=== PATIENT | male | born 1930 | race Caucasian/White ===

== ENCOUNTER 2016-08-20 00:04 | Observation (INO) | payer MEDICARE ==
[2016-08-20] VITALS (25 sets, daily range): BP systolic 99–182; BP diastolic 64–86; PULSE 54–74; RESP 18–20; TEMP 97.8–98.2; O2SAT 92–100
[~2016-08-20] VITALS: Ht 175.3 cm; Wt 90.1 kg
[~2016-08-20 00:04] MED LIST: BENA40TA PO; DOXA4 PO; LATA0.00 EACH EYE; MULTCAP20 PO; SIMV20TA PO; TEMA15 PO; VITA200017 PO
[2016-08-20] MEDS ORDERED: SODIUM CHLORIDE 0.9% FLUSH 5 ML FLUSH IVF PRN ×3 (00:30→03:30)
[2016-08-20] MEDS ORDERED: ONDANSETRON HCL 4 MG/2 ML VIAL IV PUSH ONE (00:30)
[2016-08-20] MEDS ORDERED: ASPIRIN 81 MG CHEW TAB PO ONE (00:30)
[2016-08-20] MEDS: SODIUM CHLOR 0.9% 1000 ML INJ 1,000 ML IV SCH ×3 (00:33→18:18)
--- NOTE | 2016-08-20 00:41 | PD ---
HPI Chief Complaint: Chest Pain Time Seen by Provider: 00:22 Travel History International Travel<30 days: No Contact w/Intl Traveler<30days: No Traveled to known affect area: No History of Present Illness HPI 86-year-old male presents to the emergency department by private transportation the care of his family for complaint of 30 minutes of retrosternal and epigastric abdominal pain. Patient did eat bad food prior to onset of symptoms. Patient has associated nausea without vomiting. Patient has had some pallor. Patient rates pain 9/10 intensity. Patient states pain is nonradiating. Patient is not had no associated shortness of breath. Patient does have history of hypertension dyslipidemia. Patient denies prior history of heart disease. Patient denies any arm or leg numbness tingling or weakness. No report of headache or change in mentation. Patient also has had previous CVA. PFSH Past Medical History Arthritis: Yes Asthma: No Autoimmune Disease: No Blood Disorders: No Anxiety: No Depression: No Heart Rhythm Problems: No Cancer: No Cardiovascular Problems: Yes (murmur, bradycardia) High Cholesterol: No Chemotherapy: No Chest Pain: No Congestive Heart Failure: No Cerebrovascular Accident: No Diabetes: No Diminished Hearing: No Endocrine: No GERD: No Glaucoma: No Genitourinary: No Headaches: No Hepatitis: No Hiatal Hernia: No Hypertension: Yes Immune Disorder: No Kidney Stones: No Musculoskeletal: Yes Neurologic: No Psychiatric: No Reproductive: Yes (ED (erectile dysfunction)) Respiratory: No Migraines: No Myocardial Infarction: No Radiation Therapy: No Renal Failure: No Seizures: No Sickle Cell Disease: No Sleep Apnea: No Thyroid Disease: No Ulcer: No Past Surgical History Abdominal Surgery: No AICD: No Appendectomy: No Arteriovenous Shunt: No Cardiac Surgery: No Cholecystectomy: No Ear Surgery: No Endocrine Surgery: No Eye Surgery: No Genitourinary Surgery: No Gynecologic Surgery: No Insulin Pump: No Joint Replacement: No Oral Surgery: No Pacemaker: No Thoracic Surgery: No Other Surgery: Yes Social History Alcohol Use: No Tobacco Use: No Substance Use: No Allergies-Medications (Allergen,Severity, Reaction): Coded Allergies: Codeine (Verified Allergy, Mild, 08/20/16) Reported Meds & Prescriptions Reported Meds & Active Scripts Active Reported Benazepril Hcl (Benazepril HCl) 40 Mg Tab 40 Mg PO DAILY Cardura 4 Mg Tab4 Mg 4 Mg Tab 4 Mg PO HS Restoril 15 mg (Temazepam) 15 Mg Cap 15 Mg PO HSPRN PRN for insomnia Vitamin D3 Super Strength (Cholecalciferol) 2,000 Unit Cap 2,000 Unit PO DAILY Latanoprost 0.005 % Lalitha 1 Drop EACH EYE HS Icaps Lutein & [place]-3 (Multivitamins/Minerals) 1 Cap Cap 2 Cap PO DAILY Simvastatin 20 Mg Tab 20 Mg PO DAILY Review of Systems Except as stated in HPI: all other systems reviewed are Neg General / Constitutional: No: Fever, Chills HENT: No: Congestion Cardiovascular: Positive: Chest Pain or Discomfort Respiratory: No: Cough, Shortness of Breath Gastrointestinal: Positive: Nausea, Abdominal Pain, No: Vomiting Genitourinary: No: Decreased Urinary Output, Flank Pain Musculoskeletal: No: Myalgias, Arthralgias, Pain Skin: No Rash Neurologic: No: Weakness Psychiatric: No: Anxiety Hematologic/Lymphatic: No: Lymph Node Enlargement Physical Exam Narrative GENERAL: Well-developed well-nourished male in obvious discomfort no respiratory distress mild pallor. SKIN: Warm and dry. HEAD: Normocephalic. EYES: No scleral icterus. No injection or drainage. NECK: Supple, trachea midline. No JVD or lymphadenopathy. CARDIOVASCULAR: Regular rate and rhythm without murmurs, gallops, or rubs. RESPIRATORY: Breath sounds equal bilaterally. No accessory muscle use. GASTROINTESTINAL: Abdomen soft, marked tenderness to direct palpation over the epigastrium with voluntary guarding no rebound, no right upper quadrant tenderness to palpation no clinical Rivero sign. No right lower quadrant tenderness; no palpable pulsatile mass. Nondistended. MUSCULOSKELETAL: No cyanosis, or edema. Bilateral radial and dorsalis pedis pulses 2+ to palpation. BACK: Nontender without obvious deformity. No CVA tenderness. Data Data Last Documented VS Vital Signs Date Time Temp Pulse Resp B/P Pulse Ox O2 Delivery O2 Flow Rate FiO2 08/20/16 03:18 71 18 125/79 100 Nasal Cannula 2 Orders Electrocardiogram (08/20/16 00:22) Basic Metabolic Panel (Bmp) (08/20/16 00:22) Ckmb (Isoenzyme) Profile (08/20/16 00:22) Complete Blood Count With Diff (08/20/16 00:22) Magnesium (Mg) (08/20/16 00:22) Prothrombin Time / Inr (Pt) (08/20/16 00:22) Act Partial Throm Time (Ptt) (08/20/16 00:22) Troponin I (08/20/16 00:22) Chest, Single Ap (08/20/16 00:22) Ecg Monitoring (08/20/16 00:22) Bilateral Bp Monitoring (08/20/16 00:22) Iv Access Insert/Monitor (08/20/16 00:22) Oximetry (08/20/16 00:22) Oxygen Administration (08/20/16 00:22) Aspirin Chew (Aspirin Chew) (08/20/16 00:30) Sodium Chloride 0.9% Flush (Ns Flush) (08/20/16 00:30) Sodium Chlor 0.9% 1000 Ml Inj (Ns 1000 M (08/20/16 00:30) Ondansetron Inj (Zofran Inj) (08/20/16 00:30) Ct Abd/Pel W/O Iv Contrast (08/20/16 ) Sodium Chlorid 0.9% 500 Ml Inj (Ns 500 M (08/20/16 01:00) Nitroglycerin Sl (Nitrostat Sl) (08/20/16 01:00) CKMB (08/20/16 00:30) CKMB% (08/20/16 00:30) Hepatic Functional Panel (08/20/16 00:30) Pantoprazole Inj (Protonix Inj) (08/20/16 01:30) Morphine Inj (Morphine Inj) (08/20/16 01:30) Us Abdomen Gallbladder (08/20/16 ) Lipase (08/20/16 00:30) Sodium Chloride 0.9% Flush (Ns Flush) (08/20/16 02:00) Nitroglycerin Sl (Nitrostat Sl) (08/20/16 02:00) Nitroglycerin 2% Oint (Nitroglycerin 2% (08/20/16 02:45) Admit Order (Ed Use Only) (08/20/16 ) ^ Saline Lock (08/20/16 03:29) Resp Oxygen Ron C Titrat 1-4 L (08/20/16 ) ^ Notify Dr: Other (08/20/16 03:29) Sodium Chloride 0.9% Flush (Ns Flush) (08/20/16 09:00) Sodium Chloride 0.9% Flush (Ns Flush) (08/20/16 03:30) Labs Laboratory Tests Test 08/20/16 00:30 White Blood Count 9.2 TH/MM3 Red Blood Count 4.73 MIL/MM3 Hemoglobin 14.9 GM/DL Hematocrit 44.2 % Mean Corpuscular Volume 93.5 FL Mean Corpuscular Hemoglobin 31.5 PG Mean Corpuscular Hemoglobin 33.7 % Concent Red Cell Distribution Width 13.2 % Platelet Count 237 TH/MM3 Mean Platelet Volume 8.1 FL Neutrophils (%) (Auto) 56.3 % Lymphocytes (%) (Auto) 31.1 % Monocytes (%) (Auto) 8.5 % Eosinophils (%) (Auto) 3.5 % Basophils (%) (Auto) 0.6 % Neutrophils # (Auto) 5.1 TH/MM3 Lymphocytes # (Auto) 2.9 TH/MM3 Monocytes # (Auto) 0.8 TH/MM3 Eosinophils # (Auto) 0.3 TH/MM3 Basophils # (Auto) 0.1 TH/MM3 CBC Comment DIFF FINAL Differential Comment Prothrombin Time 11.4 SEC Prothromb Time International 1.0 RATIO Ratio Activated Partial 28.7 SEC Thromboplast Time Sodium Level 143 MEQ/L Potassium Level 3.9 MEQ/L Chloride Level 107 MEQ/L Carbon Dioxide Level 26.6 MEQ/L Anion Gap 9 MEQ/L Blood Urea Nitrogen 24 MG/DL Creatinine 1.20 MG/DL Estimat Glomerular Filtration 58 ML/MIN Rate Random Glucose 113 MG/DL Calcium Level 8.8 MG/DL Magnesium Level 2.3 MG/DL Total Bilirubin 1.0 MG/DL Direct Bilirubin 0.1 MG/DL Indirect Bilirubin 0.9 MG/DL Aspartate Amino Transf 22 U/L (AST/SGOT) Alanine Aminotransferase 25 U/L (ALT/SGPT) Alkaline Phosphatase 76 U/L Total Creatine Kinase 128 U/L Creatine Kinase MB 2.7 NG/ML Troponin I 0.03 NG/ML Total Protein 7.1 GM/DL Albumin 3.3 GM/DL Lipase 172 U/L [facility] Medical Decision Making Medical Screen Exam Complete: Yes Emergency Medical Condition: Yes Medical Record Reviewed: Yes Interpretation(s) EKG sinus bradycardia rate 56 left anterior fascicular block QS in lead 3 and aVF with baseline artifact chest pain 9/10 in intensity no acute ST elevation injury pattern Repeat EKG inverted T-wave without ST segment depression in lead [address] elevation or injury pattern change noted no ectopy or ST elevation; chest pain 9/10 CBC with automated differential: Values in normal range Metabolic panel: Values grossly within normal limits except for mild elevation of BUN of 24 CK total: 127, not elevated; troponin I: 0.03 within normal range Coagulation studies within normal limits cxr: nad CT abd/pel w/o contrast" per reading radiologist no aneurysm no free fluid no free air, lateral wall mildly thickened no pericholecystic fluid no stones no ductal dilatation Differential Diagnosis Chest pain, ACS, myocardial infarction, abdominal aortic aneurysm, dissection, cholecystitis, esophageal spasm Narrative Course Patient placed on quality assurance monitor IV access obtained bilaterally antecubital fossa's with 18-gauge IV access patient placed on 3 L/m nasal cannula oxygen stat CT abdomen and pelvis noncontrast ordered along with normal saline 1 25 cc per hour stat type and screen; Zofran 4 mg IV; patient ordered 1 sublingual nitroglycerin Patient returns from CT pain is 8-9/10 in intensity several nitroglycerin times one administered and pain has decreased to 5/10 intensity but patient did develop hypotension systolic pressure 99/55 patient given IV fluid bolus Chest x-ray reveals no acute abnormality CT noncontrast reveals no aneurysm evidence of Harpreet filter and bibasilar atelectasis; also gallbladder wall mildly thickened without evidence of pericholecystic fluid ductal dilatation or stones @1:28 AM first set of cardiac enzymes within normal range however troponin I is 0.03; ultrasound of the gallbladder ordered along with Protonix 40 mg IV morphine 2 mg IV and normal saline bolus 1 L @ 1:49 BP: 140/88 CP again is 9/10 no referred pain to the neck jaw back mid scapular abdomen areas; no nausea; no vomiting; no shortness of breath; will attempt sublingual nitroglycerin 0.4 mg again to obtain decreased intensity of chest pain and hopefully resolution of chest pain. Abdomen is no longer tender to palpation diffusely or in the epigastric or right upper quadrant distribution. @2:16 AM after a total of 3 sublingual nitroglycerin blood pressure is well- controlled following IV fluid bolus; chest pain is 3/10 in intensity; epigastric right upper quadrant pain is 5-6/10 with palpation and 3/10 without palpation. registered dietetic technician is at bedside. Physician Communication Physician Communication case discussed with Dr Mckay ---will admit as OBS Diagnosis Primary Impression: Chest pain Qualified Code: R07.2 - Precordial pain Additional Impression: Cholelithiasis Admitting Information Admitting Physician Requests: Aylin Sun MD Aug 20, 2016 00:40
[2016-08-20 00:47] LABS: AUTOMATED NEUTROPHIL # 5.1 TH/MM3 (1.8-7.7); BASOPHIL # 0.1 TH/MM3 (0-0.2); BASOPHIL % 0.6 % (0.0-2.0); EOSINOPHIL # 0.3 TH/MM3 (0-0.4); EOSINOPHIL % 3.5 % (0.0-4.0); HEMATOCRIT 44.2 % (39.0-51.0); HEMO FLAGS DIFF FINAL; LYMPH % 31.1 % (9.0-44.0); LYMPHOCYTE # 2.9 TH/MM3 (1.0-4.8); MEAN CELL VOLUME 93.5 FL (80.0-100.0); MEAN CORPUSCULAR HEMOGLOBIN 31.5 PG (27.0-34.0); MEAN CORPUSCULAR HGB CONC 33.7 % (32.0-36.0); MONO % 8.5 % (0.0-8.0); NEUT % 56.3 % (16.0-70.0); PLATELET COUNT 237 TH/MM3 (150-450); RED BLOOD COUNT 4.73 MIL/MM3 (4.50-5.90); RED CELL DISTRIBUTION WIDTH 13.2 % (11.6-17.2); WHITE BLOOD COUNT 9.2 TH/MM3 (4.0-11.0)
[2016-08-20 00:53] LABS: CHLORIDE 107 MEQ/L (98-107); POTASSIUM 3.9 MEQ/L (3.5-5.1); SODIUM (NA) 143 MEQ/L (136-145)
[2016-08-20 00:57] LABS: ANION GAP 9 MEQ/L (5-15); BICARBONATE 26.6 MEQ/L (21.0-32.0); BLOOD UREA NITROGEN 24 MG/DL (7-18); MAGNESIUM 2.3 MG/DL (1.5-2.5)
[2016-08-20 00:58] LABS: APTT (PATIENT) 28.7 SEC (24.3-30.1); PROTHROMBIN TIME - PATIENT 11.4 SEC (9.8-11.6)
[2016-08-20 01:00] LABS: GLOMERULAR FILTRATION RATE 58 ML/MIN (>89)
[2016-08-20] MEDS ORDERED: SODIUM CHLORID 0.9% 500 ML INJ 500 ML IV ONE (01:00)
[2016-08-20] MEDS ORDERED: NITROGLYCERIN 0.4 MG SL 25 TABS/BTL SL ONE (01:00)
--- NOTE | 2016-08-20 01:01 | RADHPO ---
EXAM DATE/TIME: 08/20/2016 00:40 [facility] COMPARISON: No previous studies available for comparison. INDICATIONS : Chest pain. Evaluate abdominal aneurysm. ORAL CONTRAST: No oral contrast ingested. RADIATION DOSE: 22.49 CTDIvol (mGy) MEDICAL HISTORY : Hypertension. SURGICAL HISTORY : None. ENCOUNTER: Initial ACUITY: 1 day PAIN SCALE: 8/10 LOCATION: chest TECHNIQUE: Volumetric scanning of the abdomen and pelvis was performed. Using automated exposure control and ad justment of the mA and/or kV according to patient size, radiation dose was kept as low as reasonably achievable to obtain optimal diagnostic quality images. FINDINGS: LOWER LUNGS: Mild atelectasis both lung bases LIVER: Homogeneous density without lesion. There is no dilation of the biliary tree. No calcified gallston es. The gallbladder wall is mildly prominent without evidence of pericholecystic fluid or inflammatio n. SPLEEN: Normal size without lesion. PANCREAS: Within normal limits. KIDNEYS: Normal in size and shape. There is no mass, stone, or hydronephrosis. ADRENAL GLANDS: Within normal limits. VASCULAR: There is no aortic aneurysm. BOWEL/MESENTERY: The stomach, small bowel, and colon demonstrate no acute abnormality. There is no free intraperitone al air or fluid. ABDOMINAL WALL: Within normal limits. RETROPERITONEUM: There is no lymphadenopathy. IVC filter in place BLADDER: No wall thickening or mass. REPRODUCTIVE: Within normal limits. INGUINAL: There is no lymphadenopathy or hernia. MUSCULOSKELETAL: Marked arthritic change lower lumbar spine. CONCLUSION: Gallbladder wall is thickened without evidence of acute cholecystitis. IVC filter in place. Degenerat latoya arthritis lower lumbar spine. No free fluid or mass. Juwan Barraza MD on August 20, 2016 at 0:56 Board Certified Radiologist. This report was verified electronically.
[2016-08-20 01:03] LABS: CREATINE KINASE 128 U/L (39-308)
--- NOTE | 2016-08-20 01:09 | RADHPO ---
EXAM DATE/TIME: 08/20/2016 00:56 [facility] COMPARISON: CHEST SINGLE AP, December 18, 2012, 15:17. INDICATIONS : Chest pain. MEDICAL HISTORY : None. SURGICAL HISTORY : None. ENCOUNTER: Initial ACUITY: 1 day PAIN SCORE: 5/10 LOCATION: Left chest FINDINGS: A single view of the chest demonstrates the lungs to be symmetrically aerated without evidence of mas s, infiltrate or effusion. The cardiomediastinal contours are unremarkable. Osseous structures are intact. CONCLUSION: Normal examination. Juwan Barraza MD on August 20, 2016 at 1:07 Board Certified Radiologist. This report was verified electronically.
[2016-08-20 01:15] LABS: CKMB 2.7 NG/ML (0.5-3.6)
[2016-08-20 01:19] LABS: ALT (GPT) 25 U/L (12-78); AST (GOT) 22 U/L (15-37)
[2016-08-20 01:20] LABS: INDIRECT BILIRUBIN 0.9 MG/DL (0.0-0.8)
[2016-08-20 01:21] LABS: ALKALINE PHOSPHATASE 76 U/L (45-117)
[2016-08-20] MEDS ORDERED: PANTOPRAZOLE SODIUM 40 MG VIAL IV PUSH ONE (01:30)
[2016-08-20] MEDS ORDERED: MORPHINE SULFATE 4 MG/ML INJ IV PUSH ONE (01:30)
[2016-08-20] MEDS: NITROGLYCERIN 0.4 MG SL 25 TABS/BTL SL SCH ×2 (01:52→01:59)
[2016-08-20] MEDS ORDERED: NITROGLYCERIN 2% OINT 1 GM PACKET TOPICAL ONE (02:45)
--- NOTE | 2016-08-20 02:59 | RADHPO ---
EXAM DATE/TIME: 08/20/2016 02:01 [facility] COMPARISON: CT ABDOMEN & PELVIS W/O CONTRAST, August 20, 2016, 0:40. INDICATIONS : Right upper quadrant pain. MEDICAL HISTORY : Hypertension. Heart murmer. Erectile disfunction. SURGICAL HISTORY : Rotator cuff repair. Back surgery. Left knee surgery. Cervical plate fusion. ENCOUNTER: Initial ACUITY: 1 day PAIN SCORE: 7/10 LOCATION: Right upper quadrant MEASUREMENTS: LIVER: 15.2 cm length 5 mm RIGHT KIDNEY: 9.9 x 4.4 x 4.9 cm FINDINGS: LIVER: Normal echotexture without focal lesion or ductal dilatation. COMMON DUCT: No intraluminal mass or stone visualized. GALLBLADDER: Echogenic debris within the gallbladder suspicious for noncalcified gallstones. The patient was tend er over the gallbladder. PANCREAS: The visualized portions are within normal limits. RIGHT KIDNEY: No evidence of hydronephrosis, stone, or mass. CONCLUSION: Study suspicious for echogenic large gallstone in the gallbladder and the patient was tender when the gallbladder was being scanned. No free fluid is seen. The right kidney is unremarkable Juwan Barraza MD on August 20, 2016 at 2:55 Board Certified Radiologist. This report was verified electronically.
[2016-08-20] MEDS ORDERED: TEMAZEPAM 15 MG CAP PO PRN (03:45)
[2016-08-20] MEDS ORDERED: NITROGLYCERIN 0.4 MG SL 25 TABS/BTL SL PRN (03:45)
[2016-08-20] MEDS: NITROGLYCERIN 2% OINT 1 GM PACKET TOPICAL SCH ×3 (05:39→22:00)
[2016-08-20] MEDS: PRAVASTATIN SOD 40 MG TAB PO SCH (08:24)
[2016-08-20] MEDS: LISINOPRIL 20 MG TAB PO SCH (08:25)
[2016-08-20] MEDS: SODIUM CHLORIDE 0.9% FLUSH 5 ML FLUSH IVF SCH ×2 (08:27→21:00)
[2016-08-20] MEDS ORDERED: ACETAMINOPHEN 325 MG TAB PO PRN (13:00)
--- NOTE | 2016-08-20 13:27 | EKG ---
Date Performed: 08/20/2016 Time Performed: 04:12:14 PTAGE: 86 years EKG: Sinus rhythm with PAC(s). Possible left anterior fascicular block Borderline ECG Compared to PREVIOUS TRACING , there has been a slight improvement in the inferior T-wave changes but there is new ST segment depression involving the high lateral wall. The changes are nonspecific but clinical correlation will be useful. PREVIOUS TRACIN08/20/2016 04.11 DOCTOR: Sarah Blue Interpretating Date/Time 08/20/2016 13:25:55
--- NOTE | 2016-08-20 13:32 | EKG ---
Date Performed: 08/20/2016 Time Performed: 00:17:06 PTAGE: 86 years EKG: Sinus bradycardia. Possible left anterior fascicular block Inferior T wave changes are nons pecific Since previous tracing, no significant change noted Borderline ECG PREVIOUS TRACING : 08/20/2016 00.06 DOCTOR: Sarah Blue Interpretating Date/Time 08/20/2016 13:29:32
[2016-08-20] MEDS ORDERED: IOHEXOL 350 MG/ML 10 ML VIAL (for RAD DIAG) IV ONE (14:40)
--- NOTE | 2016-08-20 15:20 | RADHPO ---
EXAM DATE/TIME: 08/20/2016 14:20 [facility] COMPARISON: CT ABDOMEN & PELVIS W/O CONTRAST, August 20, 2016, 0:40. INDICATIONS : Retrosternal and epigastric pain. IV CONTRAST: 85 cc Omnipaque 350 (iohexol) IV RADIATION DOSE: 21.20 CTDIvol (mGy) MEDICAL HISTORY : Hypertension. SURGICAL HISTORY : Orthopedic surgery. ENCOUNTER: Initial ACUITY: 1 day PAIN SCALE: 3/10 LOCATION: chest TECHNIQUE: Volumetric scanning was performed using a multi-row detector CT scanner. The data was post processed with a variety of visualization algorithms including full volume maximum intensity projection, multi -planar sliding thin slab reformation, curved planar reformation, and surface rendering techniques. Using automated exposure control and adjustment of the mA and/or kV according to patient size, radiat ion dose was kept as low as reasonably achievable to obtain optimal diagnostic quality images. FINDINGS: LUNGS: Patchy bibasilar consolidation noted. There is a tiny left pleural effusion. No pneumothorax. MEDIASTINUM: No abnormally enlarged lymph nodes by CT criteria. No axillary or hilar abnormalities are identified. ABDOMEN: Solid organs appear within normal limits. Gallbladder wall thickening again noted. PELVIS: There is sigmoid colon diverticulosis without acute diverticulitis. 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 THORACIC AORTA: Thoracic aorta is normal caliber. No dissection. There is mild mural atherosclerotic plaque. ABDOMINAL AORTA: Abdominal aorta is normal caliber. Vessel has mild atherosclerosis and tortuosity, extending into the iliac arteries. No dissection. PELVIC VESSELS: Tortuous iliac arteries with mild atherosclerosis. CONCLUSION: 1. No dissection, aneurysm or other acute abnormality of the aorta or branch vessels. 2. Gallbladder wall thickening again noted, not significantly changed from the study done earlier tojosé ay. 3. Sigmoid colon diverticulosis without acute diverticulitis. 4. Worsening patchy airspace consolidation of both lung bases. Gary Hancock MD on August 20, 2016 at 15:13 Board Certified Radiologist. This report was verified electronically.
--- NOTE | 2016-08-20 15:38 | MH ---
cc: REUBEN COSTELLO M.D. DATE OF ADMISSION: 08/20/2016 ADMITTING DIAGNOSIS: Chest pain and right upper quadrant abdominal pain. HISTORY OF PRESENT ILLNESS: This 86-year white male well-known to the undersigned physician has no previous cardiac history but does have a history of hypertension and hyperlipidemia, which been well-controlled for years. The patient states that he was feeling fine and had dinner around 06:00 p.m. on the evening prior to admission. At approximately 11:00 p.m. he was sitting on the couch and had sudden onset of lower substernal and epigastric pressure but no nausea, vomiting, diaphoresis, palpitations, lightheadedness, dizziness, cough or headache, fever or chills. The patient states it was sudden in onset at rest. He informed his family and they were very concerned about a cardiac event so they put him in the car and transported him to this facility for further evaluation and treatment. In the emergency department, the patient was found to have discomfort in the lower substernal area and in the right upper quadrant. Examination by the emergency department physician did reveal tenderness in the right upper quadrant. The patient underwent an evaluation. The patient was given nitroglycerin, which seemed to improve the pain to some degree but it did recur shortly with an hour of giving the nitroglycerin and nitroglycerin was given several times and the patient was ultimately given some morphine and did have some improvement but the pain was initially at a level of 7 or 8/10 and at the best, it became 4-5/10. The morphine did help the patient, and at the current time, he reports that he has some pressure in the lower substernal area and discomfort just medial to the right scapula. He has no nausea or vomiting. The patient states that he has had a problem with some constipation recently which is unusual. He has had no melena, hematochezia, nausea, vomiting, gastroesophageal reflux disease symptoms, fever, chills, night sweats. He denies any unexplained weight loss, unexplained weight gain, difficulty with urination. He has been active recently and has had no exertional chest pain. He does usually exercise a couple of days a week at the gymnasium and has not had any discomfort. He has not travelled out of the country nor has he been exposed to anyone with any similar symptoms. PAST MEDICAL HISTORY: His past medical history is significant for: 1. Prior history of hypertension. 2. He is status post right rotator cuff repair x2. 3. Osteoarthritis. 4. Hyperlipidemia. 5. Erectile dysfunction. 6. Lumbar disc disease. Status post epidural injection and previous surgical intervention. 7. He has a history of glaucoma which was resolved with laser iridectomy. 8. He has mild macular degeneration. 9. He has a history of prostate cancer and status post proton radiation therapy. He has been disease-free since. 10. He has cervical disk disease. 11. History of squamous cell carcinoma of the skin. 12. History of right lower extremity DVT. 13. History of colonic polyps, both hyperplastic and adenomatous. 14. He has diverticulosis. 15. He had a left parietal cerebral hemorrhage in 2009. He has no residual deficits. 16. He is status post bilateral knee arthroscopic surgeries and is status post bilateral partial knee replacements. 17. He had a lumbar decompression surgery in 1985 and again in 2001. 18. He had a cervical fusion and discectomy in 2005. 19. He is status post right cataract removal with lens implant. 20. Status post inferior vena cava filter placement. CURRENT MEDICATIONS: 1. Losartan 100 milligrams daily. 2. Nizoral 2% shampoo applied to the hair and scalp daily as directed. 3. B-complex one tablet daily. 4. Xalatan eye drops 0.005%, one drop in the right eye in the evening. 5. Enteric-coated aspirin 81 milligrams daily. 6. I Caps two tablets once daily. 7. Metronidazole cream 0.75% applied to the affected area twice a day as needed. 8. Viagra 100 milligrams one tablet daily as needed. 9. Doxazosin 4 milligrams at bedtime. 10. Simvastatin 20 milligrams daily. ALLERGIES: 1. CODEINE. FAMILY HISTORY: Noncontributory. SOCIAL HISTORY: He is , retired. He is retired businessman. He lives with his . He consumes alcohol occasionally on a social basis. He does not smoke. REVIEW OF SYSTEMS: The review of systems is negative except as outlined above. PHYSICAL EXAMINATION: VITAL SIGNS: At the current time, blood pressure was 136/71 with a heart rate of 66, respirations 18, temperature was 98.2 degrees Fahrenheit, oxygen saturation on 2 liters per minute per nasal cannula is 98%. GENERAL: In general, this is an overweight elderly white male lying in bed appearing in no acute distress. HEAD, EYES, EARS, NOSE, THROAT: Pupils equal round reactive to light. Extraocular muscles intact. The sclerae are nonicteric. Nares patent without discharge. Mouth and throat are clear. Moist mucous membranes. No erythema or exudates. Dentition is good. NECK: The neck is supple without lymphadenopathy, JVD, bruits or thyromegaly. CARDIOVASCULAR: Cardiovascular examination reveals regular rhythm with a soft systolic murmur but no rubs or gallops. LUNGS: Lungs were clear to auscultation without wheezes, rhonchi or rales. CHEST: The anterior chest wall. There is tenderness to palpation overlying the bilateral lower costochondral junctions which reproduce the patient's chest pain. The patients chest discomfort is also worsened by deep inspiration. ABDOMEN: The patient's abdomen reveals tenderness to palpation in the right upper quadrant. The patient reports that when there is palpation of the right upper quadrant, he also has discomfort under the right scapula. There is moderate distension. Bowel sounds are present. No mass palpable. No splenomegaly. No costovertebral angle tenderness. BACK/SPINE: The back and spine revealed tenderness to palpation just medial to the right scapula. When the patient has palpation, he has discomfort but also reports discomfort is referred also the right upper quadrant. He has no tenderness to palpation overlying the spinous processes or discs of the thoracic or lumbar spine. AND RECTAL: Deferred. LOWER EXTREMITIES: Reveal no appreciable edema. No calf tenderness. There are 2+ distal pulses. SKIN: Warm and dry. No significant rashes or lesions. NEUROLOGIC: The patient has some mild short-term memory deficits at this time but he has received some morphine but otherwise he si alert and oriented times three. Speech is intact. Cranial nerves are intact. No lateralizing deficits. LABORATORY DATA: The patient's comprehensive metabolic profile was significant only for a random glucose of 113, BUN was mildly elevated at 24 but creatinine normal 1.2, indirect bilirubin was high at 0.9. Liver function tests were within normal limits. His troponin levels have been normal at 0.03 times three. CK total levels have been all within normal limits. Lipase was normal at 172. INR was 1.0, APTT 28.7. White blood count 9.2, hemoglobin 14.9, hematocrit 44.2, platelet count 237,000. IMAGING STUDIES: The patient had a chest x-ray, single view, which revealed normal examination. CT scan of the abdomen and pelvis revealed gallbladder wall was thickened without evidence of acute cholecystitis. An inferior vena cava filter is in place. Degenerative arthritis of the lower lumbar spine. No free fluid or masses seen. The ultrasound of the gallbladder revealed suspicious for echogenic large gallstone in the gallbladder and the patient was tender when the gallbladder was being scanned. No free fluid is seen. EKGS: EKG revealed no significant change x3. IMPRESSION AND PLAN: 1. This 86-year-old white male presented with lower substernal discomfort which she described as a pressure which was sudden in onset with no associated diaphoresis, nausea or shortness of breath. He also had discomfort in the right upper quadrant of the abdomen. The patient has had serial EKGs and cardiac enzymes x3 which have not indicated the presence of any acute coronary ischemia. Sublingual nitroglycerin did give him some improvement in his pain but was transient and he never had resolution. At the current time, his examination reveals that he reproduces his chest discomfort with palpation of the costochondral junctions in the bilateral lower chest. However, he remains mildly tender in the right upper quadrant of the abdomen. At this point, I am less suspicious for coronary ischemia based on his clinical presentation and the physical examination; however, need to rule out the possibility of choledocholithiasis versus acute versus acute versus exacerbation of chronic cholecystitis. At this point, the patient has still has the discomfort. 1. We will place the patient on observation. 2. Will check an MRCP to evaluate for any choledocholithiasis which could be causing the persistent discomfort. 3. Will repeat liver function studies as the patient's liver function tests were done within an hour of the onset of symptoms and may not have increased significantly in that interval. 4. Will also proceed with a CTA of the thoracic aorta to ensure that there is no dissection which would be causing the patient's discomfort. 5. The patient will continue with the sublingual nitroglycerin ointment and once we rule out the possibility of a thoracic aortic pathology, will likely proceed with a stress test to rule out the possibility of coronary ischemia. In the meantime, will place the patient on telemetry. monitor him closely, monitor hemoglobin and hematocrit as well as will place him on a clear liquid diet. 6. Will continue the usual medications for hypertension. 7. His vital signs have stable at this point. I have discussed the patient's condition and plan of care with the patient and his who is at the bedside as well as the son who is also the bedside and all expressed understanding and agreement. MD MEMO Khan/[place] /1:53 PM /3:09 PM
[2016-08-20] MEDS: cloNIDine HCL 0.1 MG TAB PO PRN (18:17)
--- NOTE | 2016-08-20 18:31 | RADRPT ---
EXAM DATE/TIME: 08/20/2016 17:50 [facility] COMPARISON: CTA THORACIC ABDOMINAL AORTA W 3D RECON, August 20, 2016, 14:20. CT ABDOMEN & PELVIS W/O CONTRAST, August 20, 2016, 0:40. INDICATIONS : Abdominal pain. Cholelithiasis. MEDICAL HISTORY : Hypertension. Arthritis. SURGICAL HISTORY : Total knee replacement, left. Discectomy, lumbar. Total knee replacement, right. Rotator cuff repair. IVC filter. ENCOUNTER: Subsequent ACUITY: 2 day PAIN SCORE: 3/10 LOCATION: Right upper quadrant abdomen. TECHNIQUE: Multiplanar, multisequence magnetic resonance imaging of the abdomen was performed. High-resolution 3D dataset was utilized to reconstruct maximum-intensity projection (MIP) images. FINDINGS: The MRCP shows a there are multiple, mainly large stones packed in the gallbladder, ranging between o ne and 2.8 cm in size. There is mild gallbladder wall thickening. Intrahepatic ducts are normal. The common bile duct is normal. Pancreas and pancreatic duct are within normal limits. CONCLUSION: Large stones in the gallbladder and mild wall thickening. No duct stone or ductal dilatation. Gary Hancock MD on August 20, 2016 at 18:27 Board Certified Radiologist. This report was verified electronically.
[2016-08-20] MEDS: DOXAZOSIN MESYLATE 4 MG TAB PO SCH (22:05)
[2016-08-20] MEDS: LATANOPROST 0.005% OPHT SOLN 2.5 ML BTL EACH EYE SCH (22:06)
[2016-08-20 22:36] LABS: INDIRECT BILIRUBIN 1.1 MG/DL (0.0-0.8); TOTAL BILIRUBIN ADULT 1.4 MG/DL (0.2-1.0)
[2016-08-21] VITALS (7 sets, daily range): BP systolic 108–178; BP diastolic 55–98; PULSE 55–65; RESP 18–20; TEMP 97–98.2; O2SAT 61–95
[2016-08-21] MEDS: SODIUM CHLOR 0.9% 1000 ML INJ 1,000 ML IV SCH ×3 (00:23→16:45)
[2016-08-21] MEDS: NITROGLYCERIN 2% OINT 1 GM PACKET TOPICAL SCH ×3 (06:00→20:54)
[2016-08-21] MEDS ORDERED: REGADENOSON INJ 0.4 MG/5 ML SYR ONE (09:41)
--- NOTE | 2016-08-21 10:43 | RADRPT ---
EXAM DATE/TIME: 08/21/2016 09:07 [facility] COMPARISON: No previous studies available for comparison. INDICATIONS : Substernal chest pain for 1 day. Abnormal EKG. DOSE: 25.4 mCi Tc99m Myoview at stress. 8.2 mCi Tc99m Myoview at rest. 0.4 mg Lexiscan STRESS SYMPTOMS: Facial flush. EJECTION FRACTION: 53% MEDICAL HISTORY : Hypertension. Hypercholesterolemia. SURGICAL HISTORY : Rotator cuff, left. Back surgery. ENCOUNTER: Initial ACUITY: 1 day PAIN SCALE: 8/10 LOCATION: Substernal chest TECHNIQUE: The patient underwent pharmacologic stress with infusion of prescribed dose. Continuous ECG tracing was monitored during stress. Gated SPECT imaging was performed after stress and conventional SPECT i maging was performed at rest. The examination was performed on a SPECT/CT scanner, both attenuation and non-corrected datasets were reviewed. FINDINGS: DISTRIBUTION: The maximum perfused segment at stress is in the lateral wall. PERFUSION STUDY: There is mild reversible perfusion defect mid anterior wall. There is a small fixed defect at the ape x. GATED STUDY: There is intact wall motion and thickening without hypokinetic or dyskinetic segments. CONCLUSION: Reversible perfusion defect anterior wall with a fixed apical defect noted. RISK CATEGORY: Low (<1% Annual Mortality Rate) Sharath Miramontes MD on August 21, 2016 at 10:39 Board Certified Radiologist. This report was verified electronically.
[2016-08-21] MEDS: LISINOPRIL 20 MG TAB PO SCH (10:44)
[2016-08-21] MEDS: SODIUM CHLORIDE 0.9% FLUSH 5 ML FLUSH IVF SCH ×2 (10:44→20:54)
[2016-08-21] MEDS: PRAVASTATIN SOD 40 MG TAB PO SCH (10:44)
--- NOTE | 2016-08-21 12:25 | HHI.PR ---
Subjective Remarks Patient denies any chest pain, Sob or abdominal pain. Hungry. Current Medications Medications (Trade) Dose Ordered Sig/Terrence Route Start Time Stop Time Status Last Admin (NS 1000 ml Inj) 1,000 ml @ 125 mls/hr Q8H IV 08/20/16 00:30 08/21/16 10:45 (NS Flush) 2 ml BID IVF 08/20/16 09:00 08/21/16 10:44 (NS Flush) 2 ml UNSCH PRN IVF 08/20/16 03:30 (Nitrostat Sl) 0.4 mg Q5M PRN SL 08/20/16 03:45 (Xalatan 0.005% Opth Soln) 1 drop HS EACH EYE 08/20/16 21:00 08/20/16 22:06 (Restoril) 15 mg HS PRN PO 08/20/16 03:45 (Prinivil) 40 mg DAILY PO 08/20/16 09:00 08/21/16 10:44 (Cardura) 4 mg HS PO 08/20/16 21:00 08/20/16 22:05 (Pravachol) 40 mg DAILY PO 08/20/16 09:00 08/21/16 10:44 (Nitroglycerin 2% Oint) 1 inch Q8HR TOPICAL 08/20/16 06:00 08/20/16 14:00 (Tylenol) 650 mg Q4H PRN PO 08/20/16 13:00 08/20/16 13:06 (Catapres) 0.1 mg Q8H PRN PO 08/20/16 18:15 08/20/16 18:17 Objective Vital Signs Date Time Temp Pulse Resp B/P Pulse Ox O2 Delivery O2 Flow Rate FiO2 08/21/16 11:39 97.0 60 20 129/77 95 08/21/16 08:00 55 08/21/16 07:42 93 21 08/21/16 04:20 98.0 61 20 108/55 61 08/20/16 23:50 98.0 70 20 138/66 94 08/20/16 20:20 64 08/20/16 20:00 95 08/20/16 19:32 97.8 67 20 116/69 95 08/20/16 17:00 98.1 65 20 182/86 95 08/20/16 16:20 66 18 138/78 95 I/O 08/20/16 08/20/16 08/20/16 08/21/16 08/21/16 08/21/16 07:00 15:00 23:00 07:00 15:00 23:00 Intake Total 360 ml 625 ml Output Total 300 ml 1000 ml 300 ml Balance -300 ml -640 ml 325 ml Intake Oral 360 ml IV Total 625 ml Output Urine Total 300 ml 1000 ml 300 ml # Voids 2 1 3 1 CV: RRR Lungs: CTA Abd; obese, soft, NT, ND, +BS Ext: No edema Result Diagram: 08/20/16 0030 08/20/16 0030 Other Results Last 48 hours Impressions Chest X-Ray 08/20/16 0022 Signed Impressions: Service Date/Time: Saturday, August 20, 2016 00:56 - CONCLUSION: Normal examination. Juwan Barraza MD Gall Bladder Ultrasound 08/20/16 0000 Signed Impressions: Service Date/Time: Saturday, August 20, 2016 02:01 - CONCLUSION: Study suspicious for echogenic large gallstone in the gallbladder and the patient was tender when the gallbladder was being scanned. No free fluid is seen. The right kidney is unremarkable Juwan Barraza MD Cholangiopancreatography MRI 08/20/16 0000 Signed Impressions: Service Date/Time: Saturday, August 20, 2016 17:50 - CONCLUSION: Large stones in the gallbladder and mild wall thickening. No duct stone or ductal dilatation. Gary Hancock MD Aorta CTA 08/20/16 0000 Signed Impressions: Service Date/Time: Saturday, August 20, 2016 14:20 - CONCLUSION: 1. No dissection, aneurysm or other acute abnormality of the aorta or branch vessels. 2. Gallbladder wall thickening again noted, not significantly changed from the study done earlier today. 3. Sigmoid colon diverticulosis without acute diverticulitis. 4. Worsening patchy airspace consolidation of both lung bases. Gary Hancock MD Abdomen/Pelvis CT 08/20/16 0000 Signed Impressions: Service Date/Time: Saturday, August 20, 2016 00:40 - CONCLUSION: Gallbladder wall is thickened without evidence of acute cholecystitis. IVC filter in place. Degenerative arthritis lower lumbar spine. No free fluid or mass. Juwan Barraza MD Assessment and Plan Problem List: (1) Chest pain Status: Acute Plan: The patient had sudden onset lower substernal chest pain and epigastric pain which has resolved. Cardiac enzymes and EKG's negative X 3. Had myocardial perfusion scan which reveals anterior reversible perfusion defect. Will consult cardiology for recommendation of any further evaluation or treatment. Will discharge home when OK with cardiology (2) Cholelithiasis Status: Chronic Plan: Patient currently asymptomatic. Chest pain could have been related to choledocolithiasis. (3) Hypertension Status: Acute Plan: BP controlled with current medication Problem Qualifiers (1) Chest pain: Qualified Code: R07.2 - Precordial pain (2) Cholelithiasis: Qualified Code: K80.20 - Calculus of gallbladder without cholecystitis without obstruction (3) Hypertension: Qualified Code: I10 - Essential hypertension Rayray Mckay MD Aug 21, 2016 12:25
--- NOTE | 2016-08-21 18:17 | EKG ---
Date Performed: 08/20/2016 Time Performed: 10:42:30 PTAGE: 86 years EKG: Sinus rhythm . Possible left anterior fascicular block Since previous tracing, no significant change noted Borderl ine ECG PREVIOUS TRACING : 08/20/2016 04.12 DOCTOR: Radha Winter Interpretating Date/Time 08/21/2016 18:16:12
[2016-08-21] MEDS: LATANOPROST 0.005% OPHT SOLN 2.5 ML BTL EACH EYE SCH (20:53)
[2016-08-21] MEDS: DOXAZOSIN MESYLATE 4 MG TAB PO SCH (20:53)
[2016-08-22 00:16] VITALS: BP 154/77; PULSE 62; RESP 20; TEMP 98; O2SAT 98
[2016-08-22] MEDS: SODIUM CHLOR 0.9% 1000 ML INJ 1,000 ML IV SCH ×2 (01:06→10:53)
[2016-08-22 04:00] VITALS: BP_SYST 176; BP_SYST 183; BP_DIAS 85; BP_DIAS 88; PULSE 58; RESP 20; TEMP 97.8; O2SAT 95
[2016-08-22 04:46] VITALS: BP_SYST 170; BP_SYST 175; BP_DIAS 80; BP_DIAS 88
[2016-08-22] MEDS: cloNIDine HCL 0.1 MG TAB PO PRN (04:54)
[2016-08-22] MEDS: NITROGLYCERIN 2% OINT 1 GM PACKET TOPICAL SCH (04:54)
[2016-08-22 08:41] LABS: ALKALINE PHOSPHATASE 62 U/L (45-117); ALT (GPT) 17 U/L (12-78); ANION GAP 6 MEQ/L (5-15); AST (GOT) 8 U/L (15-37); BICARBONATE 27.9 MEQ/L (21.0-32.0); BLOOD UREA NITROGEN 18 MG/DL (7-18); CHLORIDE 110 MEQ/L (98-107); GLOMERULAR FILTRATION RATE 57 ML/MIN (>89); POTASSIUM 3.8 MEQ/L (3.5-5.1); SODIUM (NA) 144 MEQ/L (136-145); TOTAL BILIRUBIN ADULT 1.4 MG/DL (0.2-1.0)
--- NOTE | 2016-08-22 10:07 | PD.CONS ---
HPI Service Cardiology Physicians Consult Requested By Dr Mckay Reason for Consult Chest pain Primary Care Physician Rayray Mckay MD History of Present Illness The patient is an 86 year old male with a cardiac history of HTN, hyperlipidemia and overweight and a history of hemorrhagic stroke who is not known to our practice and does not follow with a local senior project controls specialist.Per the patient, he does not know why he came to the hospital. Per the and hospital records, he presented to the hospital with an acute episode of chest pain associate with nausea. On evaluation this morning, he denies active chest pain, abdominal pain or SOB. The patient and deny recent onset of decreased tolerance to completing activities of daily living due to CP or SOB. The patient had a stress test that showed small area of reversible ischemia in the anterior aspect. The study was read as a low risk study. Appears that he had positive wilkins's sign with gallbladder US, though no obstruction is noted, but large gallstone is present. The patient has an IVC filter for history of DVT because he is not able to take anticoagulation. His neurologist is Dr. Arroyo. (Leena Weaver) Review of Systems ROS Limitations: Poor Historian (Leena Weaver) Past Family Social History Allergies: Coded Allergies: Codeine (Verified Allergy, Mild, 08/20/16) Past Medical History HTN HLD Hemorrhagic stroke. Unclear whether primary hemorrhagic or ischemic with hemorrhagic conversion. Unable to take anticoagulation DVT s/p IVC filter bc unable to take anticoagulation Past Surgical History Multiple orthopedic surgeries Reported Medications Reviewed Active Ordered Medications Current Medications Medications (Trade) Dose Ordered Sig/Terrence Route Start Time Stop Time Status Last Admin (NS 1000 ml Inj) 1,000 ml @ 125 mls/hr Q8H IV 08/20/16 00:30 08/22/16 01:06 (NS Flush) 2 ml BID IVF 08/20/16 09:00 08/21/16 20:54 (NS Flush) 2 ml UNSCH PRN IVF 08/20/16 03:30 (Nitrostat Sl) 0.4 mg Q5M PRN SL 08/20/16 03:45 (Xalatan 0.005% Opth Soln) 1 drop HS EACH EYE 08/20/16 21:00 08/21/16 20:53 (Restoril) 15 mg HS PRN PO 08/20/16 03:45 (Prinivil) 40 mg DAILY PO 08/20/16 09:00 08/21/16 10:44 (Cardura) 4 mg HS PO 08/20/16 21:00 08/21/16 20:53 (Pravachol) 40 mg DAILY PO 08/20/16 09:00 08/21/16 10:44 (Nitroglycerin 2% Oint) 1 inch Q8HR TOPICAL 08/20/16 06:00 08/20/16 14:00 (Tylenol) 650 mg Q4H PRN PO 08/20/16 13:00 08/20/16 13:06 (Catapres) 0.1 mg Q8H PRN PO 08/20/16 18:15 08/22/16 04:54 Family History non contributory Social History Lives with (Leena Weaver Dunia RAYA) Physical Exam Vital Signs Vital Signs Date Time Temp Pulse Resp B/P Pulse Ox O2 Delivery O2 Flow Rate FiO2 08/22/16 04:46 170/80 08/22/16 04:00 97.8 58 20 176/85 95 08/22/16 00:16 98.0 62 20 154/77 98 08/21/16 21:08 98.0 61 20 177/98 93 08/21/16 20:00 65 08/21/16 15:49 98.2 55 18 149/76 95 08/21/16 11:39 97.0 60 20 129/77 95 Physical Exam GENERAL: No acute distress, a bedside SKIN: Warm and dry. HEAD: Atraumatic. Normocephalic. EYES: Pupils equal and round. No scleral icterus. No injection or drainage. ENT: No nasal bleeding or discharge. Mucous membranes pink and moist. NECK: Trachea midline. CARDIOVASCULAR: Regular rate and rhythm. RESPIRATORY: No accessory muscle use. Clear to auscultation. Breath sounds equal bilaterally. GASTROINTESTINAL: Abdomen soft, non-tender, nondistended. Hepatic and splenic margins not palpable. MUSCULOSKELETAL: Extremities without clubbing, cyanosis, or edema. No obvious deformities. NEUROLOGICAL: Awake and alert. No obvious cranial nerve deficits. Motor grossly within normal limits. Five out of 5 muscle strength in the arms and legs. Normal speech. PSYCHIATRIC: Appropriate mood and affect; insight and judgment normal. Laboratory Laboratory Tests Test 08/22/16 07:50 Sodium Level 144 Potassium Level 3.8 Chloride Level 110 Carbon Dioxide Level 27.9 Anion Gap 6 Blood Urea Nitrogen 18 Creatinine 1.22 Estimat Glomerular Filtration 57 Rate Random Glucose 84 Calcium Level 8.0 Total Bilirubin 1.4 Aspartate Amino Transf 8 (AST/SGOT) Alanine Aminotransferase 17 (ALT/SGPT) Alkaline Phosphatase 62 Total Protein 5.6 Albumin 2.5 (Leena Weaver) Result Diagram: 08/20/16 0030 08/22/16 0750 Imaging Last 72 hours Impressions Myocardial Perfusion Scan Nuc Med 08/21/16 0000 Signed Impressions: Service Date/Time: Sunday, August 21, 2016 09:07 - CONCLUSION: Reversible perfusion defect anterior wall with a fixed apical defect noted. RISK CATEGORY : Low (<1%% Annual Mortality Rate) Sharath Miramontes MD Chest X-Ray 08/20/16 0022 Signed Impressions: Service Date/Time: Saturday, August 20, 2016 00:56 - CONCLUSION: Normal examination. Juwan Barraza MD Gall Bladder Ultrasound 08/20/16 0000 Signed Impressions: Service Date/Time: Saturday, August 20, 2016 02:01 - CONCLUSION: Study suspicious for echogenic large gallstone in the gallbladder and the patient was tender when the gallbladder was being scanned. No free fluid is seen. The right kidney is unremarkable Juwan Barraza MD Cholangiopancreatography MRI 08/20/16 0000 Signed Impressions: Service Date/Time: Saturday, August 20, 2016 17:50 - CONCLUSION: Large stones in the gallbladder and mild wall thickening. No duct stone or ductal dilatation. Gary Hancock MD Aorta CTA 08/20/16 0000 Signed Impressions: Service Date/Time: Saturday, August 20, 2016 14:20 - CONCLUSION: 1. No dissection, aneurysm or other acute abnormality of the aorta or branch vessels. 2. Gallbladder wall thickening again noted, not significantly changed from the study done earlier today. 3. Sigmoid colon diverticulosis without acute diverticulitis. 4. Worsening patchy airspace consolidation of both lung bases. Gary Hancock MD Abdomen/Pelvis CT 08/20/16 0000 Signed Impressions: Service Date/Time: Saturday, August 20, 2016 00:40 - CONCLUSION: Gallbladder wall is thickened without evidence of acute cholecystitis. IVC filter in place. Degenerative arthritis lower lumbar spine. No free fluid or mass. Juwan Barraza MD (Leena Weaver) Assessment and Plan Assessment and Plan Assessment Chest pain cardiac vs gallbladder HTN HLD Hx hemorrhagic stroke, unable to take anticoagulants. Followed by Dr. Arroyo Hx DVT s/p IVC filter Cholelithiasis Plan: Had prolonged discussion with the patient and his . On the basis of symptoms , imagining and history of hemorrhagic stroke unable to take anticoagulants will discharge the patient and follow up in the office. If the patient continues to have symptoms suspicious of cardiac ischemia and cardiac cath is to be considered, will need to discuss with Dr. Arroyo whether he would be a candidate for dual antiplatelet therapy. A drug eluted stent could be considered. Will check lipid profile and treat LDL to goal of less than 70. Unable to tolerate BB due low HR. Unable to tolerate ASA due history of hemorrhagic stroke. Patient seen and evaluated by Dr. Steele (Leena Weaver) Assessment and Plan The exam, history, and the medical decision-making described in the above note were completed with the assistance of the mid-level provider. I reviewed and agree with the findings presented. I attest that I had a [id number] encounter with the patient on the same day, and personally performed and documented my assessment and findings in the medical record. discussed with in great detail. Ok to d/c reviewed with Dr Mckay. (Amena Steele MD) Leena Weaver Aug 22, 2016 10:07 Amena Steele MD Aug 22, 2016 14:34
--- NOTE | 2016-08-22 10:39 | HHI.PR ---
Subjective Remarks Denies any chest pain or SOB. No abdominal or back pain. Current Medications Medications (Trade) Dose Ordered Sig/Terrence Route Start Time Stop Time Status Last Admin (NS 1000 ml Inj) 1,000 ml @ 125 mls/hr Q8H IV 08/20/16 00:30 08/22/16 01:06 (NS Flush) 2 ml BID IVF 08/20/16 09:00 08/21/16 20:54 (NS Flush) 2 ml UNSCH PRN IVF 08/20/16 03:30 (Nitrostat Sl) 0.4 mg Q5M PRN SL 08/20/16 03:45 (Xalatan 0.005% Opth Soln) 1 drop HS EACH EYE 08/20/16 21:00 08/21/16 20:53 (Restoril) 15 mg HS PRN PO 08/20/16 03:45 (Prinivil) 40 mg DAILY PO 08/20/16 09:00 08/21/16 10:44 (Cardura) 4 mg HS PO 08/20/16 21:00 08/21/16 20:53 (Pravachol) 40 mg DAILY PO 08/20/16 09:00 08/21/16 10:44 (Nitroglycerin 2% Oint) 1 inch Q8HR TOPICAL 08/20/16 06:00 08/20/16 14:00 (Tylenol) 650 mg Q4H PRN PO 08/20/16 13:00 08/20/16 13:06 (Catapres) 0.1 mg Q8H PRN PO 08/20/16 18:15 08/22/16 04:54 Objective Vital Signs Date Time Temp Pulse Resp B/P Pulse Ox O2 Delivery O2 Flow Rate FiO2 08/22/16 04:46 170/80 08/22/16 04:00 97.8 58 20 176/85 95 08/22/16 00:16 98.0 62 20 154/77 98 08/21/16 21:08 98.0 61 20 177/98 93 08/21/16 20:00 65 08/21/16 15:49 98.2 55 18 149/76 95 08/21/16 11:39 97.0 60 20 129/77 95 I/O 08/21/16 08/21/16 08/21/16 08/22/16 08/22/16 1/3/17 07:00 15:00 23:00 07:00 15:00 23:00 Intake Total 240 ml Balance 240 ml Intake Oral 240 ml # Voids 3 1 1 CV: RRR Lungs: CTA Abd: soft, obese, NT, ND, +BS Ext: No edema or calf tenderness Result Diagram: 08/20/16 0030 08/22/16 0750 Assessment and Plan Problem List: (1) Chest pain Status: Acute Plan: Resolved. Nuclear stress test with mild anterior reversible perfusion defect. Awaiting Cardiology recommendations (2) Cholelithiasis Status: Chronic Plan: Patient currently asymptomatic. Chest pain could have been related to choledocolithiasis. (3) Hypertension Status: Acute Plan: BP controlled with current medication Assessment and Plan If cleared by cardiology will discharge home today Problem Qualifiers (1) Chest pain: Qualified Code: R07.2 - Precordial pain (2) Cholelithiasis: Qualified Code: K80.20 - Calculus of gallbladder without cholecystitis without obstruction (3) Hypertension: Qualified Code: I10 - Essential hypertension Rayray Mckay MD Aug 22, 2016 10:39
[2016-08-22 10:41] LABS: HDL CHOLESTEROL 55.6 MG/DL (40.0-60.0)
[2016-08-22 10:45] VITALS: PULSE 52
[2016-08-22] MEDS: PRAVASTATIN SOD 40 MG TAB PO SCH (10:52)
[2016-08-22] MEDS: LISINOPRIL 20 MG TAB PO SCH (10:52)
[2016-08-22] MEDS: SODIUM CHLORIDE 0.9% FLUSH 5 ML FLUSH IVF SCH (10:52)
[2016-08-22 12:32] VITALS: BP 160/84; PULSE 70; RESP 20; TEMP 98; O2SAT 95
[2016-08-22] MEDS ORDERED: BENA40TA PO (14:55)
[2016-08-22] MEDS ORDERED: TEMA15CA PO (14:55)
[2016-08-22] MEDS ORDERED: SIMV20TA PO (14:55)
[2016-08-22] MEDS ORDERED: MULTCAP20 PO (14:55)
[2016-08-22] MEDS ORDERED: CARD4TAB2 PO (14:55)
[2016-08-22] MEDS ORDERED: CHOL1TAB31 PO (14:55)
[2016-08-22] MEDS ORDERED: LATA0.002 RIGHT EYE (14:55)
[2016-08-22] MEDS ORDERED: LOSA100T PO (14:59)
== END 2016-08-22 17:11 | disposition home or self-care (01) ==
LOC: PHED 00:04 → PHEDA 03:31 → PHEDH 06:25 → NEPHCDU 16:58
PROVIDERS: ADMIT Family Medicine; ATTEND Family Medicine
DX: R07.2 Precordial pain (principal); R23.1 Pallor; I10 Essential (primary) hypertension; E78.5 Hyperlipidemia, unspecified; R07.9 Chest pain, unspecified; R10.13 Epigastric pain; R11.0 Nausea; K80.20 Calculus of gallbladder without cholecystitis without obstruction; R01.1 Cardiac murmur, unspecified; R00.1 Bradycardia, unspecified; Z79.899 Other long term (current) drug therapy; I44.4 Left anterior fascicular block; R10.11 Right upper quadrant pain; K59.00 Constipation, unspecified; K57.90 Diverticulosis of intestine, part unspecified, without perforation or abscess without bleeding; Z86.73 Personal history of transient ischemic attack (TIA), and cerebral infarction without residual deficits
CPT/HCPCS: 71010; 71275; 74174; 74176; 74181; 76705; 78452; 80048; 80053; 80061; 82550; 82552; 83690; 83735; 84484; 85025; 85610; 85730; 93005; 93017; 96361; 96374; 96375; 99285; A9502; C9113; G0378; J2270; J2405; J2785; J7030; J7040; Q9967; 76377; 80076

== ENCOUNTER 2016-10-06 15:25 | Inpatient (IN) | payer MEDICARE ==
[~2016-10-06] VITALS: Ht 177.8 cm; Wt 90.8 kg
[~2016-10-06 15:25] MED LIST changes: -BENA40TA PO; +CARD4TAB2 PO; -DOXA4 PO; -LATA0.00 EACH EYE; +LATA0.002 RIGHT EYE; +LOSA100T PO; -TEMA15 PO; -VITA200017 PO
[2016-10-06 15:28] VITALS: BP 107/58; PULSE 62; RESP 20; TEMP 99.2; O2SAT 94
[2016-10-06] MEDS ORDERED: SODIUM CHLOR 0.9% 1000 ML INJ 1,000 ML IV ONE (15:30)
[2016-10-06 15:40] VITALS: O2SAT 99
[2016-10-06 15:44] LABS: I-STAT POTASSIUM 3.8 MMOL/L (3.5-4.9)
[2016-10-06] MEDS ORDERED: IOHEXOL 350 MG/ML 10 ML VIAL (for RAD DIAG) IV ONE (15:44)
--- NOTE | 2016-10-06 15:47 | RADRPT ---
EXAM DATE/TIME: 10/06/2016 15:37 [facility] COMPARISON: MRI BRAIN STEALTH W/O CONTRAST, December 26, 2012, 23:37. CT BRAIN W/O CONTRAST, December 27, 2012, 10:24. INDICATIONS : Stroke alert, slurred speech. RADIATION DOSE: 46.60 CTDIvol (mGy) This report was called by Dr. Avila to Dr. Black at 1544 hrs. MEDICAL HISTORY : None SURGICAL HISTORY : None. ENCOUNTER: Initial ACUITY: 1 day PAIN SCALE: 1/10 LOCATION: cranial TECHNIQUE: Multiple contiguous axial images were obtained of the head. Using automated exposure control and adj ustment of the mA and/or kV according to patient size, radiation dose was kept as low as reasonably a chievable to obtain optimal diagnostic quality images. FINDINGS: CEREBRUM: The ventricles are normal for age with mild to moderate atrophic change. Chronic small vessel ischemi c changes are present. No evidence of midline shift, mass lesion, hemorrhage or acute infarction. Th ere is a small stable area of encephalomalacia involving the right frontal lobe. No extra-axial fluid collections are seen. POSTERIOR FOSSA: The cerebellum and brainstem are intact. The 4th ventricle is midline. The cerebellopontine angle i s unremarkable. EXTRACRANIAL: The visualized portion of the orbits is intact. SKULL: The calvaria is intact. No evidence of skull fracture. CONCLUSION: 1. No acute hemorrhage or mass effect. 2. Small area of stable encephalomalacia involving the right frontal lobe. 3. Atrophy and chronic small vessel ischemic change. Leobardo Avila MD on October 06, 2016 at 15:42 Board Certified Radiologist. This report was verified electronically.
--- NOTE | 2016-10-06 15:55 | RADRPT ---
EXAM DATE/TIME: 10/06/2016 15:37 [facility] COMPARISON: No previous studies available for comparison. INDICATIONS : Stroke alert, slurred speech. IV CONTRAST: 100 cc Omnipaque 350 (iohexol) IV RADIATION DOSE: 28.80 CTDIvol (mGy) MEDICAL HISTORY : None SURGICAL HISTORY : None. ENCOUNTER: Initial ACUITY: 1 day PAIN SCALE: 2/10 LOCATION: cranial TECHNIQUE: Volumetric scanning was performed using a multi-row detector CT scanner. The data was post processed with a variety of visualization algorithms including full volume maximum intensity pr ojection, multi-planar sliding thin slab reformation, curved planar reformation, and surface renderin g techniques. Using automated exposure control and adjustment of the mA and/or kV according to patie nt size, radiation dose was kept as low as reasonably achievable to obtain optimal diagnostic quality images. FINDINGS: There is excellent visualization of the major intracranial arteries out to the second-order branch ve ssels. There is no evidence for aneurysm, vessel truncation or stenosis, and no evidence for vascula r malformation. There is no evidence for embolic occlusion. CONCLUSION: Negative for embolic occlusion. Discussed with Dr. Arroyo while on the table the tab le. Kana Huang MD FACR on October 06, 2016 at 15:52 Board Certified Radiologist. This report was verified electronically.
[2016-10-06 15:58] LABS: AUTOMATED NEUTROPHIL # 3.7 TH/MM3 (1.8-7.7); BASOPHIL % 0.4 % (0.0-2.0); EOSINOPHIL % 0.3 % (0.0-4.0); HEMATOCRIT 39.9 % (39.0-51.0); HEMO FLAGS DIFF FINAL; LYMPH % 17.8 % (9.0-44.0); MEAN CORPUSCULAR HEMOGLOBIN 31.9 PG (27.0-34.0); MEAN CORPUSCULAR HGB CONC 33.9 % (32.0-36.0); MONO % 15.1 % (0.0-8.0); NEUT % 66.4 % (16.0-70.0); PLATELET COUNT 128 TH/MM3 (150-450); RED BLOOD COUNT 4.25 MIL/MM3 (4.50-5.90); RED CELL DISTRIBUTION WIDTH 14.3 % (11.6-17.2); WHITE BLOOD COUNT 5.5 TH/MM3 (4.0-11.0)
--- NOTE | 2016-10-06 15:58 | RADRPT ---
EXAM DATE/TIME: 10/06/2016 15:37 [facility] COMPARISON: No previous studies available for comparison. INDICATIONS : Stroke alert, slured speech. IV CONTRAST: 100 cc Omnipaque 350 (iohexol) IV RADIATION DOSE: 28.44 CTDIvol (mGy) MEDICAL HISTORY : None SURGICAL HISTORY : None. ENCOUNTER: Initial ACUITY: 1 day PAIN SCALE: 1/10 LOCATION: cranial TECHNIQUE: Volumetric scanning was performed using a multirow detector CT scanner. The data was post processed with a variety of visualization algorithms including full-volume maximum intensity projection, multip lanar sliding thin-slab reformation, curved-planar reformation, and surface-rendering techniques. Us ing automated exposure control and adjustment of the mA and/or kV according to patient size, radiatio n dose was kept as low as reasonably achievable to obtain optimal diagnostic quality images. FINDINGS: AORTIC ARCH: There is a three-vessel origin of the great vessels from the aorta. No evidence of ostial narrowing. RIGHT CAROTID: The common carotid artery is intact. The carotid bulb has a normal configuration without ulceration o r narrowing. The internal carotid artery lumen is smooth without stenosis. The external carotid ania ry is intact. LEFT CAROTID: The common carotid artery is intact. The carotid bulb has a normal configuration without ulceration or narrowing. The internal carotid artery lumen is smooth without stenosis. The external carotid ar ledy is intact. VERTEBRALS: The vertebral arteries have a symmetric diameter. No stenotic lesions are seen. CONCLUSION: Negative for hemodynamically significant stenosis or source of emboli.. Kana Huang MD FACR on October 06, 2016 at 15:55 Board Certified Radiologist. This report was verified electronically.
[2016-10-06] MEDS ORDERED: DEXTROSE 50% IN WATER 50 ML VIAL(D50) IV PUSH PRN (16:00)
[2016-10-06] MEDS ORDERED: GLUCAGON 1 MG/ML VIAL IM/SQ PRN (16:00)
[2016-10-06] MEDS ORDERED: SODIUM CHLORIDE 0.9% FLUSH 5 ML FLUSH IVF PRN (16:00)
[2016-10-06] MEDS: INSULIN ASPART SUPPLEMENTAL SCALE SQ SCH ×2 (16:00→21:00)
[2016-10-06 16:03] LABS: APTT (PATIENT) 29.2 SEC (24.3-30.1); INTERNATIONAL NORMALIZED RATIO 1.1 RATIO; PROTHROMBIN TIME - PATIENT 12.3 SEC (9.8-11.6)
[2016-10-06] MEDS: SODIUM CHLOR 0.9% 1000 ML INJ 1,000 ML IV SCH (16:09)
[2016-10-06] MEDS: ASPIRIN 325 MG TAB PO SCH (16:13)
--- NOTE | 2016-10-06 16:47 | MB ---
cc: ROSIE KAUR DATE OF CONSULTATION: 10/06/2016 REASON FOR CONSULTATION: Stroke alert. HISTORY OF PRESENT ILLNESS Mr. Clifton is an 86-year-old man who was getting of the shower this afternoon and lost consciousness, around 2:30. When he came to he had confusion, difficulty following commands or moving his extremities. He also had difficulty with slurring of his speech. [facility] was called and called a stroke alert in the field. Upon arrival he had some mild dysarthria. Initial NIH stroke scale was 2, his symptoms have since completely resolved. He is back to normal in terms of speech. No focal deficits. PERSONAL HISTORY Remarkable for hypertension, Hyperlipidemia, rotator cuff repair on the right Osteoarthritis. Lumbar spondylosis. Glaucoma. Macular degeneration. cervical disk disease. Squamous cell carcinoma History of right lower extremity deep venous thrombosis Diverticulosis. Left petechial cerebral hemorrhage in 2009 with no residual deficits. Bilateral knee surgery. Lumbar spine surgery. Cervical fusion. Discectomy. Right cataract removal History of right IVC filter placement. MEDICATIONS: He does not take any blood thinners at home. No aspirin. ALLERGIES CODEINE NEUROLOGIC EXAMINATION: VITAL SIGNS: Blood pressure is 160/84, pulse 70, respirations 20, temperature 9 degrees. Higher cortical functions are normal at this time normal at this time including speech. He has no dysarthria. No aphasia. Cranial nerves II-XII are normal. Motor exam 5/5 strength of all groups. There is no drift. Reflexes symmetric. There is no Babinski. CT of the brain; normal for age. CT angiogram was done as well with no evidence of any large vessel occlusion. LABORATORY DATA Hemoglobin 13.6, hematocrit 40, sodium 138, potassium 3.8, chloride 100, BUN is 23, creatinine 1.4, glucose 106. Coags pending. IMPRESSION Episode of syncope with dysarthria following that and confusion. This could have been a TIA versus syncope from transient hypotension, rule out focal seizure. The patient is completely resolved his symptoms is therefore not a candidate for IV TPA. He is not a candidate for intervention given the resolution of symptoms and negative CTA. RECOMMENDATIONS We will start him on aspirin for possible TIA 325 mg daily. We will keep him at bedrest overnight. We will also evaluate further with echocardiogram, lipid panel and EEG. MD Cedric Kelly /3:51 PM /4:11 PM
--- NOTE | 2016-10-06 17:05 | PD ---
HPI Chief Complaint: Stroke Alert Time Seen by Provider: 15:30 Travel History International Travel<30 days: No Contact w/Intl Traveler<30days: No Traveled to known affect area: No History of Present Illness HPI Patient 86-year-old male presents emergency Department as a stroke alert. According to EMS patient was getting out of the shower at approximately 1430 this afternoon and had a syncopal episode. After which she was very slow to respond to his and not following commands and she call 911. On arrival by EMS patient is very sluggish to follow commands very dysarthric and unable to follow commands in all 4 extremities. Further history demonstrates the patient does have a history of a hemorrhagic stroke in the past. He is also had multiple small ischemic infarcts not leaving residual deficits. Patient is not on any blood thinners. Patient was a stroke alert in the field. Discussed briefly with Dr. Arroyo prior to arrival. On arrival patient is able to provide significant history, denies any chest pain abdominal pain nausea vomiting or diarrhea. Patient is able to follow commands. He is alert and oriented times to to himself and time. PFSH Past Medical History Arthritis: Yes Asthma: No Autoimmune Disease: No Blood Disorders: No Anxiety: No Depression: No Heart Rhythm Problems: No Cancer: No Cardiovascular Problems: No High Cholesterol: No Chemotherapy: No Chest Pain: No Congestive Heart Failure: No Cerebrovascular Accident: No Diabetes: No Diminished Hearing: No Endocrine: No Gastrointestinal Disorders: No GERD: No Glaucoma: No Genitourinary: No Headaches: No Hepatitis: No Hiatal Hernia: No Heparin Induced Thrombocytopen: No Hypertension: Yes Immune Disorder: No Implanted Vascular Access Dvce: No Kidney Stones: No Musculoskeletal: Yes Neurologic: No Psychiatric: No Reproductive: Yes (ED (erectile dysfunction)) Respiratory: No Migraines: No Myocardial Infarction: No Radiation Therapy: No Renal Failure: No Seizures: No Sickle Cell Disease: No Sleep Apnea: No Thyroid Disease: No Ulcer: No Past Surgical History Abdominal Surgery: No AICD: No Appendectomy: No Arteriovenous Shunt: No Cardiac Surgery: No Cholecystectomy: No Ear Surgery: No Endocrine Surgery: No Eye Surgery: No Genitourinary Surgery: No Gynecologic Surgery: No Insulin Pump: No Joint Replacement: No Neurologic Surgery: No Oral Surgery: No Pacemaker: No Thoracic Surgery: No Other Surgery: Yes Social History Alcohol Use: No Tobacco Use: No Substance Use: No Allergies-Medications (Allergen,Severity, Reaction): Coded Allergies: Codeine (Verified Allergy, Mild, 10/06/16) Reported Meds & Prescriptions Reported Meds & Active Scripts Active Losartan (Losartan Potassium) 100 Mg Tab 100 Mg PO DAILY Reported Simvastatin 20 Mg Tab 20 Mg PO HS Icaps Lutein & Totz-3 (Multiple Vitamins W/ Minerals) 1 Cap 1 Cap PO BID Latanoprost Opth Drops (Latanoprost) 0.005% Drops 1 Drop RIGHT EYE HS Refrigerate until opened. Cardura (Doxazosin Mesylate) 4 Mg Tab 4 Mg PO HS Review of Systems Except as stated in HPI: all other systems reviewed are Neg Physical Exam Narrative GENERAL: Well-developed well-nourished in no apparent distress SKIN: Warm and dry. HEAD: Atraumatic. Normocephalic. EYES: Pupils equal and round. No scleral icterus. No injection or drainage. ENT: No nasal bleeding or discharge. Mucous membranes pink and moist. NECK: Trachea midline. No JVD. CARDIOVASCULAR: Regular rate and rhythm. No murmur appreciated. RESPIRATORY: No accessory muscle use. Clear to auscultation. Breath sounds equal bilaterally. GASTROINTESTINAL: Abdomen soft, non-tender, nondistended. Hepatic and splenic margins not palpable. MUSCULOSKELETAL: No obvious deformities. No clubbing. No cyanosis. No edema. NEUROLOGICAL: Awake and alert and oriented mild dysarthria. Cranial nerves II through XII are grossly intact and nonfocal, 5 out of 5 strength in all 4 extremities, no pronator drift bilaterally. PSYCHIATRIC: Appropriate mood and affect; insight and judgment normal. Data Data Last Documented VS Vital Signs Date Time Temp Pulse Resp B/P Pulse Ox O2 Delivery O2 Flow Rate FiO2 10/06/16 15:40 99 Nasal Cannula 4 10/06/16 15:28 99.2 62 20 107/58 Orders Diet Npo (10/06/16 Dinner) Activity Bed Rest (10/06/16 ) Electrocardiogram (10/06/16 ) I-Stat Creatinine (10/06/16 15:30) I-Stat Profile (10/06/16 15:30) Prothrombin Time / Inr (Pt) (10/06/16 15:30) Act Partial Throm Time (Ptt) (10/06/16 15:30) Complete Blood Count With Diff (10/06/16 15:30) Fibrinogen (10/06/16 15:30) Creatine Kinase (Cpk) (10/06/16 15:30) Troponin I (10/06/16 15:30) Ua Includes Microscopic (10/06/16 15:30) Drug Screen, Random Urine (10/06/16 15:30) Type And Screen (10/06/16 15:30) Ct Brain W/O Iv Contrast(Rout) (10/06/16 ) Cta Brain W Iv Contrast W 3d (10/06/16 15:30) Cta Neck W Iv Contrast W 3d (10/06/16 15:30) Consult Neurology (10/06/16 ) Blood Glucose (10/06/16 15:30) Ecg Monitoring (10/06/16 15:30) Neuro Checks Q2HX12,Q4H (10/06/16 15:30) Nursing Bedside Swallow Assess .ONCE (10/06/16 15:30) Iv Access Insert/Monitor (10/06/16 15:30) NPO (10/06/16 15:30) Oximetry (10/06/16 15:30) Oxygen Administration (10/06/16 15:30) Sodium Chlor 0.9% 1000 Ml Inj (Ns 1000 M (10/06/16 15:30) Resp Oxygen Ron C Titrat 1-4 L (10/06/16 15:30) Cath For Specimen (10/06/16 15:30) Iohexol 350 Inj (Omnipaque 350 Inj) (10/06/16 15:44) Code Status (10/06/16 15:51) Nih Stroke Scale - Nihss .On admission and discharge (10/06/16 15:51) Neuro Checks Q2HX12,Q4H (10/06/16 15:51) Ot Request For Service (10/06/16 15:51) Consult Pt Eval & Treat (10/06/16 15:51) Case Management Consult (10/06/16 ) Nursing Bedside Swallow Assess .ONCE (10/06/16 15:51) Scd Bilateral/Knee High HERSON.QSHIFT (10/06/16 15:51) Hemoglobin (Hgb) A1c (10/06/16 15:51) Lipid Profile (10/07/16 06:00) Mri Brain W/O Contrast (10/06/16 ) Echo 2d Comp W/Dopp(Routine) (10/06/16 ) Resp Oxygen Ron C Titrat 1-4 L (10/06/16 ) ^ Hold Medication (10/06/16 15:51) Sodium Chloride 0.9% Flush (Ns Flush) (10/06/16 21:00) Sodium Chloride 0.9% Flush (Ns Flush) (10/06/16 16:00) Sodium Chlor 0.9% 1000 Ml Inj (Ns 1000 M (10/06/16 16:00) Aspirin (Aspirin) (10/06/16 16:00) Bedside Glucose HERSON.AC&HS (10/06/16 15:51) ^ Discontinue Insulin Orders (10/06/16 15:51) Insulin Aspart Supplemtl Scale (Novolog (10/06/16 16:00) Dextrose 50% In Radu (Vial) Inj (D50w (Vi (10/06/16 16:00) Glucagon Inj (Glucagon Inj) (10/06/16 16:00) Consult Rehab Medicine (10/06/16 15:51) Pet Resort Concierge / Telemetry HERSON.Q8H (10/06/16 15:51) Consult Stoke Navigator (10/06/16 ) (Hub Use Only)Inp Phy Cons/Ref (10/06/16 15:55) (Hub Use Only)Inp Phy Cons/Ref (10/06/16 ) (Hub Use Only)Inp Phy Cons/Ref (10/06/16 ) Admit Order (Ed Use Only) (10/06/16 ) Labs Laboratory Tests Test 10/06/16 10/06/16 15:27 16:59 White Blood Count 5.5 TH/MM3 Red Blood Count 4.25 MIL/MM3 Hemoglobin 13.5 GM/DL Bedside Hemoglobin 13.6 G/DL Hematocrit 39.9 % Bedside Hematocrit 40.0 % Mean Corpuscular Volume 94.0 FL Mean Corpuscular Hemoglobin 31.9 PG Mean Corpuscular Hemoglobin 33.9 % Concent Red Cell Distribution Width 14.3 % Platelet Count 128 TH/MM3 Mean Platelet Volume 8.2 FL Neutrophils (%) (Auto) 66.4 % Lymphocytes (%) (Auto) 17.8 % Monocytes (%) (Auto) 15.1 % Eosinophils (%) (Auto) 0.3 % Basophils (%) (Auto) 0.4 % Neutrophils # (Auto) 3.7 TH/MM3 Lymphocytes # (Auto) 1.0 TH/MM3 Monocytes # (Auto) 0.8 TH/MM3 Eosinophils # (Auto) 0.0 TH/MM3 Basophils # (Auto) 0.0 TH/MM3 CBC Comment DIFF FINAL Differential Comment Prothrombin Time 12.3 SEC Prothromb Time International 1.1 RATIO Ratio Activated Partial 29.2 SEC Thromboplast Time Fibrinogen 324 mg/dL Bedside Sodium 138 MMOL/L Bedside Potassium 3.8 MMOL/L Bedside Chloride 100 MMOL/L Bedside Blood Urea Nitrogen 23 MG/DL Bedside Creatinine 1.4 MG/DL Bedside Glucose 106 MG/DL Total Creatine Kinase 115 U/L Troponin I 0.05 NG/ML Blood Type O POSITIVE Antibody Screen NEGATIVE Urine Color YELLOW Urine Turbidity CLEAR Urine pH 6.0 Urine Specific [place] 1.050 Urine Protein TRACE mg/dL Urine Glucose (UA) NEG mg/dL Urine Ketones NEG mg/dL Urine Occult Blood NEG Urine Nitrite NEG Urine Bilirubin NEG Urine Urobilinogen LESS THAN 2.0 MG/DL Urine Leukocyte Esterase NEG Urine WBC LESS THAN 1 /hpf Urine Opiates Screen NEG Urine Barbiturates Screen NEG Urine Amphetamines Screen NEG Urine Benzodiazepines Screen NEG Urine Cocaine Screen NEG Urine Cannabinoids Screen NEG MDM Medical Screen Exam Complete: Yes Emergency Medical Condition: Yes EKG Prior to Arrival: Yes Differential Diagnosis Acute CVA, intracranial hemorrhage, syncopal episode, cardiogenic syncope, anemia. Narrative Course Patient is an 86-year-old male that approximately 2:30 this afternoon started having altered mental status following a syncopal event. A stroke alert was activated in the field. Patient is improved significant for a while in the emergency department, his NIH stroke scale is 2 for me, he also has a history of a hemorrhagic stroke. These are certainly contraindications to TPA. Mental status is continuing to improve in the emergency department. Dr. Arroyo is seen in consult and Dr. Mckay will admit. The patient's symptoms are probably more secondary to a syncopal episode consider vasovagal syncope. Dr. Arroyo has written a consult note please see his note for further recommendations. Thank you to Dr. Mckay. EKG shows sinus rhythm with PACs, left axis deviation normal R-wave progression concerning ST T changes. This abnormal EKG. Stroke Alert NIHSS NIH Stroke Scale Result: 2 NIHSS Time Completed: 15:35 Thrombolytic Contraindications Contraindications Comment: History of erratic stroke, resolving symptoms, low NIH scale. Diagnosis Diagnosis: Primary Impression: Altered mental status Qualified Code: R41.82 - Altered mental status, unspecified altered mental status type Additional Impression: Syncopal episodes Qualified Code: R55 - Syncope, unspecified syncope type Admitting Physician Requests: Observation Condition: Stable Selvin Dinero MD Oct 06, 2016 17:05
[2016-10-06 17:57] LABS: BLOOD, URINE NEG (NEG); GLUCOSE,URINE NEG (NEG); KETONE, URINE NEG (NEG); NITRITE,URINE NEG (NEG); URINE COLOR YELLOW (YELLW/STRAW)
[2016-10-06 18:00] LABS: AMPHETAMINE, URINE NEG (NEG); BARBITURATES, URINE NEG (NEG); COCAINE, URINE NEG (NEG)
[2016-10-06 18:14] VITALS: BP 130/64; PULSE 58; RESP 16; O2SAT 96
--- NOTE | 2016-10-06 18:32 | MH ---
cc: COSTELLOREUBEN VILLALTA DATE OF ADMISSION: 10/06/2016 ADMITTING DIAGNOSIS: Syncope, possible TIA. HISTORY OF PRESENT ILLNESS: This 86-year-old white male well-known to the undersigned physician was at home and had taken a shower. He states that when he got out of the shower he had a coughing spell and then passed out. He had no prodrome of any aura, chest pain, shortness of breath, nausea, vomiting, or diaphoresis. The patient has had an upper respiratory infection over the last several days. I received a call from the patient three evenings ago at which point he reported that he had a cough and some respiratory congestion. I had recommended Mucinex DM tablets and instructed him to call the office on the following day to be seen. He never called for an appointment. The patient's mental status is cleared at this point and he states that over the last couple of days he has just basically been lying in bed and eating very little and drinking very little. He has been taking his medications which include his antihypertensive medications and he still has a moist cough, which is nonproductive. He did take the Mucinex DM, which he states he had a soreness in his throat when he tried to swallow them. The patient has a previous history of the intracranial hemorrhage which resolved and he was left with no residual deficits. He has been on an enteric-coated aspirin 81 mg daily at the current time. The patient denies any discomfort. He is awake and alert and denies any neurologic symptoms. PAST MEDICAL HISTORY: His past medical history is significant for: 1. The above-mentioned intracranial hemorrhage on the left which occurred in 2009. 2. He has hypertension. 3. He is status post right rotator cuff tear with two previous repairs. 4. He has generalized osteoarthritis. 5. Hyperlipidemia. 6. Erectile dysfunction. 7. Lumbar disk disease. 8. He is status post lumbar surgery which left him with a right mild foot drop. 9. He has cervical disk disease. 10. He has a history of prostate cancer and is status post proton radiation therapy. He has had no evidence of any recurrence. 11. He has mild macular degeneration. 12. History of glaucoma which was resolved with a laser iridectomy. 13. He has had a squamous cell carcinoma of the skin. 14. He has a history of a right lower extremity DVT. 15. He has a history of adenomatous colonic polyps and diverticulosis. PAST SURGICAL HISTORY: His surgeries include: 1. Two previous right rotator cuff tears. 2. A bilateral knee arthroscopy. 3. He had a lumbar decompressive surgery in 1985 and 2001. 4. Cervical fusion with diskectomy in 2005. 5. Bilateral laser iridectomies. 6. He has history of a left partial knee replacement in 2008. 7. A right partial knee replacement in 2009. 8. He had bilateral cataract removal with lens implants. 9. He has an IVC filter in place. 10. 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 MEDICATIONS: His current medications are: 1. Losartan 100 milligrams daily. 2. B-complex one tablet daily. 3. Xalatan eye drops 0.005% one drop in the right eye in the evening. 4. Enteric-coated aspirin 81 milligrams daily. 5. I-Caps two tablets daily. 6. Metronidazole Cream 0.075% applied to the face for rosacea twice daily as needed. 7. Doxazosin 4 milligrams one tablet at bedtime. 8. Simvastatin 20 milligrams one tablet daily. ALLERGIES: 1. CODEINE. 2. HE HAS HAD AN ADVERSE REACTION TO GENERAL ANESTHESIA, WHICH CAUSED MENTAL STATUS CHANGES. FAMILY HISTORY: Positive for a mother with hypertension. SOCIAL HISTORY: He is a retired businessman. He lives with his . They are originally from [facility]. He does not smoke, nor did he ever. He drinks alcohol on a social basis. REVIEW OF SYSTEMS: His review of systems is negative except as outlined above. PHYSICAL EXAMINATION: VITAL SIGNS: Upon arrival to the emergency department, his blood pressure is 107/58, heart rate was 62, respirations 28, temperature 99.2 degrees Fahrenheit, oxygen saturation on 4 liters minute per nasal cannula was 99%. GENERAL: In general, this is an overweight elderly white male lying in bed in no acute distress. HEAD, EYES, EARS, NOSE, THROAT: Pupils equal round react to light. Nares are intact. Sclerae anicteric. Conjunctive were pink with lens implants in place. Nares patent without discharge. Mouth and throat reveal moist mucous membranes. No erythema or exudates. NECK: Neck is supple without lymphadenopathy, JVD, bruits or thyromegaly CARDIOVASCULAR: Regular rate and rhythm with murmurs, rubs or gallops. LUNGS: Lungs are clear to auscultation without wheezes, rhonchi or rales. ABDOMEN: Abdomen is soft, nontender, obese, nondistended with bowel sounds present. No mass palpable. No hepatosplenomegaly. AND RECTAL: Deferred. LOWER EXTREMITIES: Reveal 2+ pulses. No calf tenderness. No Homans' sign. NEUROLOGIC: The patient is awake and alert and oriented times three, speech intact. Cranial nerves intact. Strength is 5/5 in the upper and lower extremities with the exception of 4/5 dorsiflexion of the right foot which is a chronic finding. He has some mild short-term memory deficits which are close to baseline. No delusions or hallucinations. Mood is good. Affect appropriate. SKIN: Warm and dry. No significant rashes or lesions. LABORATORY DATA: The white blood cell count was 5.5, hemoglobin 13.5, hematocrit 39.9, platelet count was low at 128,000. The white blood count differential revealed 66.4 neutrophils, 17.8 lymphocytes and 15.1 monocytes. The point of care electrolytes were within normal limits. His creatinine is 1.4. Hemoglobin A1c pending. Troponin is 0.05, which is within normal limits. CK is 115. Urinalysis and urine drug screen are pending. IMAGING STUDIES: A CT of the head reveals no embolic occlusion. A CTA of the neck reveals no hemodynamically significant stenosis or source of emboli in the carotid arteries. CT scan of the brain reveals no acute hemorrhage or mass effect. Small area of stable encephalomalacia involving the right frontal lobe. Atrophy and chronic small vessel ischemic changes. MRI of the brain is pending. IMPRESSION AND PLAN: This 86-year white male presented with the followin. A syncopal episode. Upon his awakening he had some dysarthria and confusion. A stroke alert was called. The patient was transported. He does not meet criteria for tPA. Dr. Arroyo has seen him in consultation for neurology and agrees that he does not qualify for tPA due to history of cerebral hemorrhage. His mental status has returned to baseline. The patient has had no definite lateralizing deficits. He is to undergo evaluation for the source of embolism including echocardiogram. Must also be evaluate for the possibility of seizure activity with an EEG. The patient will continue on aspirin therapy but will increase to 325 mg daily 2. Mild dehydration. The patient has this upper respiratory infection and has not been eating or drinking well. His creatinine is 1.4 where normally his creatinine will range 1.0 to 1.1. I suspect that he has not been taking in adequate fluids. Will provide him with IV fluids. 3. Hypertension. We will hold his antihypertensive medications as the patient's blood pressure was low upon arrival to the emergency department. I suspect that he may have had hypotension as a result of some mild dehydration combined with taking his antihypertensive medications. His syncopal event may have been related to the low blood pressure combined with a vasovagal reaction from his coughing which he states he did just prior to the syncope. Will resume the antihypertensive medications when the patient's blood pressure will tolerate. The patient will continue with a statin therapy. He normally takes simvastatin and the statin will be adjusted to comply with the hospital formulary. 4. Glaucoma. Continue with Xalatan eye drops in the right eye. I have explained the plan of care to the patient and his who is at the bedside and both expressed understanding and agreement. MD MEMO Khan/[place] /5:44 PM /6:11 PM
--- NOTE | 2016-10-06 18:45 | RADRPT ---
EXAM DATE/TIME: 10/06/2016 18:01 [facility] COMPARISON: CHEST SINGLE AP, August 20, 2016, 0:56. INDICATIONS : Cough MEDICAL HISTORY : None. SURGICAL HISTORY : None. ENCOUNTER: Initial ACUITY: 1 day PAIN SCORE: 0/10 LOCATION: Bilateral chest FINDINGS: A single view of the chest demonstrates the lungs to be symmetrically aerated without evidence of mas s, infiltrate or effusion. The cardiomediastinal contours are unremarkable. There is an anterior cer vical fusion plate at the lower cervical spine and orthopedic fasteners seen at the humeral heads yolette aterally.. CONCLUSION: No acute disease. Gary Urrutia MD on October 06, 2016 at 18:43 Board Certified Radiologist. This report was verified electronically.
[2016-10-06 20:16] VITALS: BP 148/80; PULSE 54; RESP 19; TEMP 98; O2SAT 95
[2016-10-06 21:00] VITALS: PULSE 56
[2016-10-06] MEDS: PRAVASTATIN SOD 40 MG TAB PO SCH (21:53)
[2016-10-06] MEDS: SODIUM CHLORIDE 0.9% FLUSH 5 ML FLUSH IVF SCH (21:53)
[2016-10-06] MEDS: LATANOPROST 0.005% OPHT SOLN 2.5 ML BTL RIGHT EYE SCH (22:11)
--- NOTE | 2016-10-06 22:50 | RADRPT ---
EXAM DATE/TIME: 10/06/2016 19:32 [facility] COMPARISON: MRI BRAIN STEALTH W/O CONTRAST, December 26, 2012, 23:37. CT BRAIN W/O CONTRAST, October 06, 2016, 15:37. INDICATIONS : Slurred speech. MEDICAL HISTORY : Hypertension. Arthritis. SURGICAL HISTORY : Discectomy, lumbar. Fusion, cervical. ENCOUNTER: Initial ACUITY: 1 day PAIN SCORE: 0/10 LOCATION: cranial TECHNIQUE: Multiplanar, multisequence MRI of the brain was performed without contrast. FINDINGS: The ventricles and cortical sulci are mildly widened. There is increased signal seen t hroughout the cerebral white matter on the FLAIR images. No extra-axial fluid collections, areas of hemorrhage, mass effect or acute infarction are seen. On the SWI images there are multiple punctate areas of low signal seen throughout the brain bilaterally. These could represent the sequela of prio r small areas of hemorrhage. This could suggest underlying vascular lesions such as angiomas. No abn ormality to correspond to these findings is seen on the other sequences. CONCLUSION: 1. Mild age-related atrophy. 2. Suspected widespread small vessel ischemic change in the white matter. 3. Numerous punctate areas of low signal seen throughout the brain on the SWI images. These are typic ally seen with hemosiderin. These could suggest prior areas of punctate hemorrhage. No significant m ass effect or acute abnormality is seen. These are chronic. Gary Urrutia MD on October 06, 2016 at 20:48 Board Certified Radiologist. This report was verified electronically.
[2016-10-07] VITALS (9 sets, daily range): BP systolic 130–163; BP diastolic 68–99; PULSE 55–74; RESP 18–20; TEMP 97.6–101.4; O2SAT 93–96
[2016-10-07 05:29] LABS: ANION GAP 8 MEQ/L (5-15); AST (GOT) 23 U/L (15-37); BLOOD UREA NITROGEN 21 MG/DL (7-18); CHLORIDE 104 MEQ/L (98-107); GLOMERULAR FILTRATION RATE 49 ML/MIN (>89); POTASSIUM 4.2 MEQ/L (3.5-5.1); SODIUM (NA) 140 MEQ/L (136-145)
[2016-10-07 05:33] LABS: ALKALINE PHOSPHATASE 70 U/L (45-117); ALT (GPT) 25 U/L (12-78); HDL CHOLESTEROL 61.1 MG/DL (40.0-60.0); LDL CHOLESTEROL 46 MG/DL (0-99); TOTAL BILIRUBIN ADULT 0.7 MG/DL (0.2-1.0)
[2016-10-07] MEDS: INSULIN ASPART SUPPLEMENTAL SCALE SQ SCH ×4 (06:04→21:00)
[2016-10-07] MEDS: SODIUM CHLOR 0.9% 1000 ML INJ 1,000 ML IV SCH ×2 (06:14→17:30)
[2016-10-07] MEDS: SODIUM CHLORIDE 0.9% FLUSH 5 ML FLUSH IVF SCH ×2 (08:48→20:52)
[2016-10-07] MEDS: ASPIRIN 325 MG TAB PO SCH (08:48)
--- NOTE | 2016-10-07 10:40 | HHI.PR ---
Subjective Remarks Very confused. Does not recall events of yesterday. Denies pain. BP variable. No lateralizing deficits or headache. Cough has improved. Passed bedside swallow eval and is eating breakfast this am. Current Medications Medications (Trade) Dose Ordered Sig/Terrence Route Start Time Stop Time Status Last Admin (NS Flush) 2 ml BID IVF 10/06/16 21:00 10/07/16 08:48 IV Flush 2 ml 2 ml UNSCH PRN IVF 10/06/16 16:00 (NS 1000 ml Inj) 1,000 ml @ 100 mls/hr Q10H IV 10/06/16 16:00 10/07/16 06:14 (Aspirin) 325 mg DAILY PO 10/06/16 16:00 10/07/16 08:48 (D50w (Vial) Inj) 25 ml UNSCH PRN IV PUSH 10/06/16 16:00 (Glucagon Inj) 1 mg UNSCH PRN IM/SQ 10/06/16 16:00 (Xalatan 0.005% Opth Soln) 1 drop HS RIGHT EYE 10/06/16 21:00 10/06/16 22:11 (Pravachol) 40 mg HS PO 10/06/16 21:00 10/06/16 21:53 Objective Vital Signs Date Time Temp Pulse Resp B/P Pulse Ox O2 Delivery O2 Flow Rate FiO2 10/07/16 09:25 101.4 70 18 145/68 95 10/07/16 05:36 95 Nasal Cannula 2.00 10/07/16 03:16 98.3 64 19 163/99 93 10/06/16 21:00 56 10/06/16 20:16 98.0 54 19 148/80 95 10/06/16 19:30 Nasal Cannula 2.00 10/06/16 18:14 58 16 130/64 96 Nasal Cannula 2 10/06/16 15:40 99 Nasal Cannula 4 10/06/16 15:40 99 Nasal Cannula 4 10/06/16 15:28 99.2 62 20 107/58 94 I/O 10/06/16 10/06/16 10/06/16 10/07/16 10/07/16 10/07/16 07:00 15:00 23:00 07:00 15:00 23:00 Intake Total 590 ml Output Total 600 ml Balance -10 ml Intake IV Total 590 ml Output Urine Total 600 ml Gen: Confused but NAD CV: RRR Lungs: CTA Abd: soft, NT, ND Ext: no edema, calf tenderness and intact distal pulses Neuro: Awake and alert. Oriented to person only. States he is in "a place that washes clothes". No lateralizing deficits except mild weakness dorsiflexion right foot which is chronic. Speech intact. Significant short term memory and cognitive deficits. Hallucinations present, seeing "washing machines" in room Result Diagram: 10/06/16 1527 10/07/16 0412 Imaging Last 48 hours Impressions Neck CTA 10/06/16 1530 Signed Impressions: Service Date/Time: Thursday, October 06, 2016 15:37 - CONCLUSION: Negative for hemodynamically significant stenosis or source of emboli.. Kana Huang MD FACR Head CTA 10/06/16 1530 Signed Impressions: Service Date/Time: Thursday, October 06, 2016 15:37 - CONCLUSION: Negative for embolic occlusion. Discussed with Dr. Arroyo while on the table the table. Kana Huang MD FACR Head CT 10/06/16 0000 Signed Impressions: Service Date/Time: Thursday, October 06, 2016 15:37 - CONCLUSION: 1. No acute hemorrhage or mass effect. 2. Small area of stable encephalomalacia involving the right frontal lobe. 3. Atrophy and chronic small vessel ischemic change. Leobardo Avial MD Chest X-Ray 10/06/16 0000 Signed Impressions: Service Date/Time: Thursday, October 06, 2016 18:01 - CONCLUSION: No acute disease. Gary Urrutia MD Brain MRI 10/06/16 0000 Signed Impressions: Service Date/Time: Thursday, October 06, 2016 19:32 - CONCLUSION: 1. Mild age-related atrophy. 2. Suspected widespread small vessel ischemic change in the white matter. 3. Numerous punctate areas of low signal seen throughout the brain on the SWI images. These are typically seen with hemosiderin. These could suggest prior areas of punctate hemorrhage. No significant mass effect or acute abnormality is seen. These are chronic. Gary Urrutia MD Other Results Laboratory Tests Test 10/06/16 10/06/16 10/07/16 15:27 16:59 04:12 White Blood Count 5.5 Red Blood Count 4.25 Hemoglobin 13.5 Bedside Hemoglobin 13.6 Hematocrit 39.9 Bedside Hematocrit 40.0 Mean Corpuscular Volume 94.0 Mean Corpuscular Hemoglobin 31.9 Mean Corpuscular Hemoglobin 33.9 Concent Red Cell Distribution Width 14.3 Platelet Count 128 Mean Platelet Volume 8.2 Neutrophils (%) (Auto) 66.4 Lymphocytes (%) (Auto) 17.8 Monocytes (%) (Auto) 15.1 Eosinophils (%) (Auto) 0.3 Basophils (%) (Auto) 0.4 Neutrophils # (Auto) 3.7 Lymphocytes # (Auto) 1.0 Monocytes # (Auto) 0.8 Eosinophils # (Auto) 0.0 Basophils # (Auto) 0.0 CBC Comment DIFF FINAL Differential Comment Prothrombin Time 12.3 Prothromb Time International 1.1 Ratio Activated Partial 29.2 Thromboplast Time Fibrinogen 324 Bedside Sodium 138 Bedside Potassium 3.8 Bedside Chloride 100 Bedside Blood Urea Nitrogen 23 Bedside Creatinine 1.4 Bedside Glucose 106 Total Creatine Kinase 115 Troponin I 0.05 Blood Type O POSITIVE Antibody Screen NEGATIVE Urine Color YELLOW Urine Turbidity CLEAR Urine pH 6.0 Urine Specific [place] 1.050 Urine Protein TRACE Urine Glucose (UA) NEG Urine Ketones NEG Urine Occult Blood NEG Urine Nitrite NEG Urine Bilirubin NEG Urine Urobilinogen LESS THAN 2.0 Urine Leukocyte Esterase NEG Urine WBC LESS THAN 1 Urine Opiates Screen NEG Urine Barbiturates Screen NEG Urine Amphetamines Screen NEG Urine Benzodiazepines Screen NEG Urine Cocaine Screen NEG Urine Cannabinoids Screen NEG Sodium Level 140 Potassium Level 4.2 Chloride Level 104 Carbon Dioxide Level 28.0 Anion Gap 8 Blood Urea Nitrogen 21 Creatinine 1.39 Estimat Glomerular Filtration 49 Rate Random Glucose 85 Calcium Level 8.1 Total Bilirubin 0.7 Aspartate Amino Transf 23 (AST/SGOT) Alanine Aminotransferase 25 (ALT/SGPT) Alkaline Phosphatase 70 Total Protein 6.4 Albumin 3.0 Triglycerides Level 59 Cholesterol Level 119 LDL Cholesterol 46 HDL Cholesterol 61.1 Cholesterol/HDL Ratio 1.94 Assessment and Plan Problem List: (1) Syncopal episodes Status: Acute Plan: Work-up negative so far. EEG pending. I suspect vasovagal episode combined with orthostatic hypotension. Patient had URI and was not eating or drinkling much yet still taking antihypertensive medications. Was mildly dehydrated as indicated by higher than baseline Creatinine. Syncope preceded by coughing spell while standing. Will still need to complete evaluation. Will increase rate IVF to correct intravascular volume depletion (2) Altered mental status Status: Acute Plan: Mental status significantly changed from baseline. This patient has had altered mental status previously following surgery with general anesthesia. May be acuter delerium, however, with will need to rule out other etiologies. Will discuss further work-up with neurology (3) Hypertension Status: Chronic Plan: BP higher overnight. Will resume Losartan 100 mg daily. Hold Doxazosin for now (4) Hyperlipidemia Status: Chronic Plan: Continue statin therapy. Lipid profile completed Problem Qualifiers (1) Syncopal episodes: Qualified Code: R55 - Syncope, unspecified syncope type (2) Altered mental status: Qualified Code: R41.82 - Altered mental status, unspecified altered mental status type (3) Hypertension: Qualified Code: I10 - Essential hypertension (4) Hyperlipidemia: Qualified Code: E78.2 - Mixed hyperlipidemia Rayray Mckay MD Oct 07, 2016 10:40
[2016-10-07 12:22] LABS: HEMOGLOBIN A1a 1.5 %; HEMOGLOBIN A1b 0.9 %; HEMOGLOBIN Ao 85.3 %; HEMOGLOBIN F 0.7 %; HEMOGLOBIN LA1C 1.8 %; HEMOGLOBIN P3 3.9 %
[2016-10-07] MEDS: LOSARTAN 50 MG TAB PO SCH (13:14)
--- NOTE | 2016-10-07 16:26 | EKG ---
Date Performed: 10/06/2016 Time Performed: 15:52:06 PTAGE: 86 years EKG: Sinus rhythm WITH OCCASIONAL PREMATURE ATRIAL COMPLEXES Left axis deviation. Since previous tracing, no significa nt change noted ABNORMAL ECG PREVIOUS TRACING : 08/20/2016 10.42 DOCTOR: Joselo Hamilton Interpretating Date/Time 10/07/2016 16:24:51
[2016-10-07] MEDS: LATANOPROST 0.005% OPHT SOLN 2.5 ML BTL RIGHT EYE SCH (20:53)
[2016-10-07] MEDS: PRAVASTATIN SOD 40 MG TAB PO SCH (20:53)
--- NOTE | 2016-10-07 23:15 | MG ---
cc: ROSIE KAUR Lab No: [id number] Date: 10/07/16 Age: Sex: M Race: TECHNIQUE 17 channel EEG. DESCRIPTION The background rhythm reveals symmetrical alpha rhythm, frequency is 8 Hz. During drowsiness, there is mild slowing in the theta range. There are no lateralizing features present and no epileptiform discharges present. There is rare muscle artifact but this is minimal. Photic stimulation results in a fairly well-developed symmetrical driving response. Hyperventilation was not done. INTERPRETATION Normal EEG. MD MICHAEL Kelly/ /10:33 PM /11:15 PM
[2016-10-08 03:53] VITALS: BP 157/80; PULSE 55; RESP 20; TEMP 97.4; O2SAT 95
[2016-10-08] MEDS: SODIUM CHLOR 0.9% 1000 ML INJ 1,000 ML IV SCH (03:53)
[2016-10-08 05:58] LABS: BICARBONATE 26.2 MEQ/L (21.0-32.0); POTASSIUM 3.7 MEQ/L (3.5-5.1)
[2016-10-08] MEDS: INSULIN ASPART SUPPLEMENTAL SCALE SQ SCH ×2 (06:31→11:00)
[2016-10-08 07:40] VITALS: BP 148/83; PULSE 54; RESP 20; TEMP 98.4; O2SAT 95
[2016-10-08] MEDS: LOSARTAN 50 MG TAB PO SCH (10:08)
[2016-10-08] MEDS: SODIUM CHLORIDE 0.9% FLUSH 5 ML FLUSH IVF SCH (10:08)
[2016-10-08] MEDS: ASPIRIN 325 MG TAB PO SCH (10:09)
[2016-10-08 11:30] VITALS: BP 138/86; PULSE 54; RESP 20; TEMP 98.1; O2SAT 94
--- NOTE | 2016-10-08 11:32 | HHI.PR ---
Review/Management Diagnosis syncope. No evidence for cva on MRI and no sign of seizure focus on EEG--- Plan No additional neurologic work up needed Ok to discharge from neurology standpoint when ok with Dr Mckay follow up with me in office in 2-3 weeks Diagnosis/Plan: Subjective Subjective Comments No acute events reported States he had vigorous coughing just prior to syncopal episode. feels back to normal now Active Medications Current Medications Medications (Trade) Dose Ordered Sig/Terrence Route Start Time Stop Time Status Last Admin (NS Flush) 2 ml BID IVF 10/06/16 21:00 10/08/16 10:08 IV Flush 2 ml 2 ml UNSCH PRN IVF 10/06/16 16:00 (NS 1000 ml Inj) 1,000 ml @ 100 mls/hr Q10H IV 10/06/16 16:00 10/08/16 03:53 (Aspirin) 325 mg DAILY PO 10/06/16 16:00 10/08/16 10:09 (D50w (Vial) Inj) 25 ml UNSCH PRN IV PUSH 10/06/16 16:00 (Glucagon Inj) 1 mg UNSCH PRN IM/SQ 10/06/16 16:00 (Xalatan 0.005% Opth Soln) 1 drop HS RIGHT EYE 10/06/16 21:00 10/07/16 20:53 (Pravachol) 40 mg HS PO 10/06/16 21:00 10/07/16 20:53 (Cozaar) 100 mg DAILY PO 10/07/16 11:00 10/08/16 10:08 Allergies Allergies Coded Allergies Codeine (Verified Allergy, Mild, 10/06/16) Exam I&O / VS 10/07/16 10/07/16 10/08/16 15:00 23:00 07:00 Intake Total 360 ml Balance 360 ml Intake Oral 360 ml # Voids 4 1 Vital Signs Date Time Temp Pulse Resp B/P Pulse Ox O2 Delivery O2 Flow Rate FiO2 10/08/16 07:40 98.4 54 20 148/83 95 10/08/16 03:53 97.4 55 20 157/80 95 10/07/16 23:38 98.0 55 20 147/72 95 10/07/16 21:57 74 10/07/16 20:00 96 10/07/16 19:43 97.6 73 20 150/75 95 10/07/16 12:09 68 18 130/80 95 Exam Comments alert, oriented, normal speech cn normal motor no focal deficits Objective Radiology Results MRI brain --chronic ischemic changes with no acute CVA Micro and Labs Laboratory Tests Test 10/08/16 04:30 Sodium Level 141 Potassium Level 3.7 Chloride Level 105 Carbon Dioxide Level 26.2 Anion Gap 10 Blood Urea Nitrogen 24 Creatinine 1.34 Estimat Glomerular Filtration 51 Rate Random Glucose 83 Calcium Level 8.1 Diagnostic Tests EEG---normal Palmer Arroyo PhD MD Oct 08, 2016 11:32
--- NOTE | 2016-10-08 12:43 | HHI.PR ---
Subjective Remarks Mental status back to baseline. No longer confused or hallucinating. Taking po well. BP under adequate control with medications. Denies chest pain, SOB. Complains of cough with some sputum production consistent with URI he had prior to admission. Current Medications Medications (Trade) Dose Ordered Sig/Terrence Route Start Time Stop Time Status Last Admin (NS Flush) 2 ml BID IVF 10/06/16 21:00 10/08/16 10:08 IV Flush 2 ml 2 ml UNSCH PRN IVF 10/06/16 16:00 (NS 1000 ml Inj) 1,000 ml @ 100 mls/hr Q10H IV 10/06/16 16:00 10/08/16 03:53 (Aspirin) 325 mg DAILY PO 10/06/16 16:00 10/08/16 10:09 (D50w (Vial) Inj) 25 ml UNSCH PRN IV PUSH 10/06/16 16:00 (Glucagon Inj) 1 mg UNSCH PRN IM/SQ 10/06/16 16:00 (Xalatan 0.005% Opth Soln) 1 drop HS RIGHT EYE 10/06/16 21:00 10/07/16 20:53 (Pravachol) 40 mg HS PO 10/06/16 21:00 10/07/16 20:53 (Cozaar) 100 mg DAILY PO 10/07/16 11:00 10/08/16 10:08 Objective Vital Signs Date Time Temp Pulse Resp B/P Pulse Ox O2 Delivery O2 Flow Rate FiO2 10/08/16 11:30 98.1 54 20 138/86 94 10/08/16 07:40 98.4 54 20 148/83 95 10/08/16 03:53 97.4 55 20 157/80 95 10/07/16 23:38 98.0 55 20 147/72 95 10/07/16 21:57 74 10/07/16 20:00 96 10/07/16 19:43 97.6 73 20 150/75 95 I/O 10/07/16 10/07/16 10/07/16 10/08/16 10/08/16 10/08/16 07:00 15:00 23:00 07:00 15:00 23:00 Intake Total 590 ml 360 ml Output Total 600 ml Balance -10 ml 360 ml Intake Oral 360 ml IV Total 590 ml Output Urine Total 600 ml # Voids 4 1 Gen: NAD CV: RRR no murmur Lungs: Trace end exp wheezes. No rales or rhonchi Abd: Soft, NT, ND Ext; No edema' Neuro: A&OX 3. Still some memory gaps from last couple days. No lateralizing deficits Result Diagram: 10/06/16 1527 10/08/16 0430 Imaging Last 48 hours Impressions Neck CTA 10/06/16 1530 Signed Impressions: Service Date/Time: Thursday, October 06, 2016 15:37 - CONCLUSION: Negative for hemodynamically significant stenosis or source of emboli.. Kana Huang MD FACR Head CTA 10/06/16 1530 Signed Impressions: Service Date/Time: Thursday, October 06, 2016 15:37 - CONCLUSION: Negative for embolic occlusion. Discussed with Dr. Arroyo while on the table the table. Kana Huang MD FACR Assessment and Plan Problem List: (1) Syncopal episodes Status: Acute Plan: Work-up negative. Suspect Vasovagal syncope. Patient without complaints. OK to discharge home (2) Altered mental status Status: Resolved Plan: Delirium resolved. (3) Hypertension Status: Chronic Plan: BP borderline. Resume Doxazosin at 4 mg qhs. Follow BP as outpatient (4) Hyperlipidemia Status: Chronic Plan: Continue statin therapy. Lipid profile completed Discharge Planning Home today Problem Qualifiers (1) Syncopal episodes: Qualified Code: R55 - Syncope, unspecified syncope type (2) Altered mental status: Qualified Code: R41.82 - Altered mental status, unspecified altered mental status type (3) Hypertension: Qualified Code: I10 - Essential hypertension (4) Hyperlipidemia: Qualified Code: E78.2 - Mixed hyperlipidemia Rayray Mckay MD Oct 08, 2016 12:43
[2016-10-08] MEDS ORDERED: MUCI30TA2 PO (12:49)
[2016-10-08] MEDS ORDERED: PRED20 PO (12:49)
--- NOTE | 2016-10-08 13:01 | EC ---
Study Study Date:10/07/2016 STUDY CONCLUSIONS SUMMARY - Left ventricle: The cavity size was normal. Wall thickness was normal. Systolic function was normal. The estimated ejection fraction was in the range of 55% to 60%. Wall motion was normal; there were no regional wall motion abnormalities. Doppler parameters are consistent with abnormal left ventricular relaxation (grade 1 diastolic dysfunction). - Aortic valve: Mild regurgitation. If LV function is below 40, please consider prescribing an ACEI or ARB or document rationale for non-use. PROCEDURE DATA STUDY STATUS: Elective. Procedure: Transthoracic echocardiography. Image quality was good. Scanning was performed from the parasternal, apical, and subcostal acoustic windows. Study completion: The patient tolerated the procedure well. Transthoracic echocardiography. M-mode, complete 2D, complete spectral Doppler, and color Doppler. Patient status: Inpatient. CARDIAC ANATOMY LEFT VENTRICLE: The cavity size was normal. Wall thickness was normal. Systolic function was normal. The estimated ejection fraction was in the range of 55% to 60%. Wall motion was normal; there were no regional wall motion abnormalities. Doppler parameters are consistent with abnormal left ventricular relaxation (grade 1 diastolic dysfunction). AORTIC VALVE: Trileaflet; normal thickness leaflets. Doppler: Transvalvular velocity was within the normal range. There was no stenosis. Mild regurgitation. Peak gradient: 13mm Hg (S). AORTA: Aortic root: The aortic root was normal in size. MITRAL VALVE: Structurally normal valve. Doppler: Transvalvular velocity was within the normal range. There was no evidence for stenosis. No regurgitation. Mean gradient: 2mm Hg (D). Peak gradient: 8mm Hg (D). LEFT ATRIUM: The atrium was normal in size. RIGHT VENTRICLE: The cavity size was normal. Wall thickness was normal. Systolic pressure was within the normal range. PULMONIC VALVE: Doppler: Transvalvular velocity was within the normal range. There was no evidence for stenosis. No regurgitation. TRICUSPID VALVE: Structurally normal valve. Doppler: Transvalvular velocity was within the normal range. Trace regurgitation. PULMONARY ARTERY: The main pulmonary artery was normal-sized. Systolic pressure was within the normal range. RIGHT ATRIUM: The atrium was normal in size. PERICARDIUM: There was no pericardial effusion. SYSTEMIC VEINS: Inferior vena cava: The vessel was normal in size. BASIC MEASUREMENTS ADULT Normal Left ventricle LV internal dimension, ED, chordal level, *42.3 mm 43-52 PLAX LV internal dimension, ES, chordal level, 31.6 mm 23-38 PLAX Fractional shortening, chordal level, PLAX *25 % >29 LV posterior wall thickness, ED 7.91 mm IVS/LVPW ratio, ED 1.11 <1.3 Ventricular septum Septal thickness, ED 8.8 mm Aortic valve Leaflet separation 24 mm 15-26 Left atrium Anterior-posterior dimension 33 mm Right ventricle RV internal dimension, ED, PLAX 21.3 mm 19-38 BASIC MEASUREMENTS ADULT Normal Aortic valve Leaflet separation 24 mm 15-26 Aorta Root diameter, ED *39 mm 20-37 DOPPLER MEASUREMENTS ADULT Normal Main pulmonary artery Pressure, S 26 mm Hg =30 Aortic valve Peak velocity, S 178 cm/s VTI, S 46.8 cm Peak gradient, S 13 mm Hg Mitral valve Peak E-wave velocity 87.1 cm/s Peak A-wave velocity 125 cm/s Mean velocity, D 69 cm/s Mean gradient, D 2 mm Hg Peak gradient, D 8 mm Hg Peak E/A ratio 0.7 Tricuspid valve Regurgitant peak velocity 229 cm/s Peak RV-RA gradient, S 21 mm Hg Maximal regurgitant velocity 229 cm/s Systemic veins Estimated CVP 5 mm Hg Right ventricle RV pressure, S 26 mm Hg <30 LEGEND: Mean values are shown as u=mean value. Asterisk (*) shaw values outside specified normal range. Prepared and signed by Odette Swift [id number]
== END 2016-10-08 15:22 | disposition home or self-care (01) | DRG 312 ==
LOC: NEPE 15:25 → NEDA 17:04 → NEPGCP 20:02 → OBSVTOIN 10-07 10:25
PROVIDERS: ADMIT Family Medicine; ATTEND Family Medicine
DX: R55 Syncope and collapse (principal); E86.0 Dehydration; I10 Essential (primary) hypertension; R47.1 Dysarthria and anarthria; J06.9 Acute upper respiratory infection, unspecified; E78.2 Mixed hyperlipidemia; H40.9 Unspecified glaucoma; H35.30 Unspecified macular degeneration; M15.9 Polyosteoarthritis, unspecified; M47.816 Spondylosis without myelopathy or radiculopathy, lumbar region; Z79.82 Long term (current) use of aspirin; Z85.46 Personal history of malignant neoplasm of prostate; Z85.828 Personal history of other malignant neoplasm of skin; Z86.010 Personal history of colon polyps; Z86.718 Personal history of other venous thrombosis and embolism; Z86.73 Personal history of transient ischemic attack (TIA), and cerebral infarction without residual deficits; Z96.651 Presence of right artificial knee joint
CPT/HCPCS: 70450; 70496; 70498; 70551; 71010; 80048; 80053; 80061; 80307; 81001; 82435; 82550; 82565; 82947; 82948; 83036; 84132; 84295; 84484; 84520; 85025; 85384; 85610; 85730; 86850; 86900; 86901; 93005; 93306; 95819; 96360; G0378; J7030; Q9967

== ENCOUNTER 2017-11-21 13:02 | Inpatient (IN) | payer MEDICARE ==
[2017-11-21 11:50] VITALS: BP 142/84; PULSE 67; RESP 20; TEMP 97.5; O2SAT 97
[~2017-11-21 13:02] MED LIST changes: +HUMIBIDDM PO; +PRED20 PO
[2017-11-21] MEDS ORDERED: DIATRIZOATE MEGLUM/DIATRIZOATE SOD 9 ML CUP PO ONE (13:45)
[2017-11-21] MEDS: SODIUM CHLOR 0.9% 1000 ML INJ 1,000 ML IV SCH (14:10)
[2017-11-21 14:16] LABS: HEMATOCRIT 37.4 % (39.0-51.0); HEMOGLOBIN 12.7 GM/DL (13.0-17.0); MEAN CELL VOLUME 94.7 FL (80.0-100.0); MEAN CORPUSCULAR HEMOGLOBIN 32.1 PG (27.0-34.0); MEAN CORPUSCULAR HGB CONC 33.9 % (32.0-36.0); MEAN PLATELET VOLUME 7.7 FL (7.0-11.0); PLATELET COUNT 267 TH/MM3 (150-450); RED BLOOD COUNT 3.95 MIL/MM3 (4.50-5.90); RED CELL DISTRIBUTION WIDTH 13.1 % (11.6-17.2); WHITE BLOOD COUNT 10.8 TH/MM3 (4.0-11.0)
[2017-11-21] MEDS: KETOROLAC TROMETHAMINE 30 MG/ML (IVP) VIAL IV PUSH PRN ×2 (14:44→23:02)
[2017-11-21 15:23] LABS: BILIRUBIN, URINE NEG (NEG); BLOOD, URINE NEG (NEG); GLUCOSE,URINE NEG (NEG); KETONE, URINE NEG (NEG); NITRITE,URINE NEG (NEG); PH, URINE 5.5 (5.0-8.5); URINE COLOR YELLOW (YELLW/STRAW); URINE LEUKOCYTE ESTERASE NEG (NEG)
[2017-11-21 15:29] LABS: RBC, URINE 0-3 /hpf (0-3); SQUAMOUS EPITHELIAL CELL URINE 0-5 /hpf (0-5)
[2017-11-21 15:50] VITALS: BP 155/94; PULSE 66; RESP 20; TEMP 96.9; O2SAT 98
[2017-11-21 17:07] LABS: CHLORIDE 106 MEQ/L (98-107); SODIUM (NA) 139 MEQ/L (136-145)
[2017-11-21 17:11] LABS: CALCIUM 8.1 MG/DL (8.5-10.1)
[2017-11-21 17:12] LABS: ALBUMIN 2.5 GM/DL (3.4-5.0); BICARBONATE 28.1 MEQ/L (21.0-32.0); BLOOD UREA NITROGEN 21 MG/DL (7-18); GLUCOSE,RANDOM 94 MG/DL (74-106)
[2017-11-21 17:15] LABS: ALT (GPT) 18 U/L (12-78); AST (GOT) 54 U/L (15-37); GLOMERULAR FILTRATION RATE 48 ML/MIN (>89)
[2017-11-21 17:16] LABS: TOTAL BILIRUBIN ADULT 0.7 MG/DL (0.2-1.0); TOTAL PROTEIN 6.8 GM/DL (6.4-8.2)
[2017-11-21 17:18] LABS: ALKALINE PHOSPHATASE 71 U/L (45-117)
[2017-11-21] MEDS: metroNIDAZOLE 500 MG INJ 100 ML IV SCH (17:39)
[2017-11-21] MEDS ORDERED: LEVOFLOXACIN 750 MG PREMIX INJ 150 ML IV SCH (18:00)
[2017-11-21] MEDS ORDERED: IOHEXOL 350 MG/ML 10 ML VIAL (for RAD DIAG) IVCONTRAST ONE (18:12)
--- NOTE | 2017-11-21 18:26 | RADRPT ---
EXAM DATE/TIME: 11/21/2017 17:40 [facility] COMPARISON: No previous studies available for comparison. INDICATIONS : Left lower quadrant abdomen pain. IV CONTRAST: 80 cc Omnipaque 350 (iohexol) IV ORAL CONTRAST: Prescribed oral contrast ingested. RADIATION DOSE: 18.63 CTDIvol (mGy) MEDICAL HISTORY : Hypertension. Carcinoma, prostate. SURGICAL HISTORY : None. ENCOUNTER: Initial ACUITY: 1 day PAIN SCALE: 0/10 LOCATION: Left lower quadrant abdomen TECHNIQUE: Volumetric scanning of the abdomen and pelvis was performed. Using automated exposure control and ad justment of the mA and/or kV according to patient size, radiation dose was kept as low as reasonably achievable to obtain optimal diagnostic quality images. DICOM format image data is available electro nically for review and comparison. FINDINGS: LOWER LUNGS: The visualized lower lungs are clear. LIVER: Homogeneous density without lesion. There is no dilation of the biliary tree Minimal gallbladder wal l thickening SPLEEN: Normal size without lesion. PANCREAS: Within normal limits. KIDNEYS: Normal in size and shape. There is no mass, stone or hydronephrosis. ADRENAL GLANDS: Within normal limits. VASCULAR: Vena cava filter evident. BOWEL/MESENTERY: Minimal inflammatory changes sigmoid colon level of iliac crest suggesting diverticulitis. ABDOMINAL WALL: Within normal limits. RETROPERITONEUM: There is no lymphadenopathy. BLADDER: No wall thickening or mass. REPRODUCTIVE: Prominent prostate INGUINAL: There is no lymphadenopathy or hernia. MUSCULOSKELETAL: Degenerative changes noted in CONCLUSION: Inflammatory changes proximal sigmoid associated with diverticuli consistent with acute diverticuliti s. No abscess. Followup is suggested to exclude neoplastic process. Kana Huang MD FACR on November 21, 2017 at 18:21 Board Certified Radiologist. This report was verified electronically.
[2017-11-21 18:33] VITALS: BP 167/99; PULSE 57
[2017-11-21 20:00] VITALS: BP 183/91; PULSE 59; RESP 20; TEMP 98.2; O2SAT 96
[2017-11-21] MEDS: PRAVASTATIN SOD 40 MG TAB PO SCH (21:01)
[2017-11-21] MEDS: LATANOPROST 0.005% OPHT SOLN 2.5 ML BTL RIGHT EYE SCH (21:01)
[2017-11-21 21:39] VITALS: BP 154/95; PULSE 59
[2017-11-22] VITALS: BP 161/88; PULSE 63; RESP 20; TEMP 98.6; O2SAT 97
[2017-11-22] MEDS: metroNIDAZOLE 500 MG INJ 100 ML IV SCH ×4 (01:12→23:58)
[2017-11-22] MEDS: SODIUM CHLOR 0.9% 1000 ML INJ 1,000 ML IV SCH (01:12)
[2017-11-22 04:00] VITALS: BP 146/77; PULSE 53; RESP 20; TEMP 97.1; O2SAT 94
[2017-11-22 07:50] VITALS: BP 140/91; PULSE 55; RESP 20; TEMP 97.7; O2SAT 99
--- NOTE | 2017-11-22 08:25 | MH ---
cc: Rayray Mckay MD DATE OF ADMISSION: 11/21/2017 ADMITTING DIAGNOSIS: Left lower quadrant pain, probable diverticulitis. HISTORY OF PRESENT ILLNESS: This 87-year-old white male well known to the undersigned physician contacted the undersigned physician late in the evening on the day prior to admission complaining of some lower abdominal discomfort, mostly on the left side. He stated that it had been going on for several days. He was having normal bowel movements except for some mild constipation. He denied any fever, chills, night sweats, nausea, vomiting. No urinary urgency, frequency, dysuria, hematuria or urinary incontinence. The patient denies eating any unusual foods. He has not traveled anywhere recently where he might have been exposed to any intestinal infections. He has had no exposures to anyone with any similar symptoms. The patient was instructed to report to the undersigned physician's office at 09:00 a.m. on the day of admission. When the patient presented, he stated that prior to coming to the office, he had a very hard stool, which was difficult to pass. Overnight, his pain in his left lower quadrant has increased significantly and it is a sharp pain, which is worse with movement. He did have some bright red blood per rectum. He was extremely weak and somewhat confused. He was lightheaded. The patient's blood pressure at that time was 80/52. He did take his usual medications on the morning of admission. PAST MEDICAL AND SURGICAL HISTORY: Significant for hypertension, generalized osteoarthritis, rotator cuff tears and status post arthroscopic surgery of the right shoulder x 2, hyperlipidemia, erectile dysfunction, lumbar disk disease, status post lumbar decompression surgery and previous epidural injections, cervical disk disease, prostate cancer, status post external beam radiation therapy with proton therapy, macular degeneration, glaucoma which resolved with laser iridectomies. 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 He is status post arthroscopic surgery of the bilateral knees, status post lumbar decompression in 1985 and 2001, status post cervical fusion with discectomy in 2005, status post left partial knee replacement in 2008, status post cataract removal with lens implant on the right in 2009, status post right partial knee replacement in 2009, status post IVC filter placement in 2009 and he had right index finger trigger finger release in 2017. CURRENT MEDICATIONS: Includes Escitalopram 10 mg daily, doxazosin 4 mg at bedtime, simvastatin 20 mg daily, losartan 100 mg daily, B complex 1 tablet daily, Xalatan eyedrops 0.005% 1 drop into the right eye each evening, aspirin 81 mg daily, I-CAPS 1 tablet twice daily. ALLERGIES: CODEINE AND HE HAS HAD ALTERED MENTAL STATUS WITH ANESTHESIA IN THE PAST. IMMUNIZATION HISTORY: He had an influenza vaccination on 06/18/2017. He had a pneumococcal vaccination on 06/12/2015. FAMILY HISTORY: Noncontributory. SOCIAL HISTORY: He is , retired. He was a businessman. He does not smoke. He consumes alcohol occasionally on a social basis. He currently lives with his . REVIEW OF SYSTEMS: The patient is positive for the above-mentioned abdominal pain and bright red blood per rectum. The patient also has some mild short-term memory deficits. He has some generalized mild arthritic pain. Otherwise, review of systems is negative. PHYSICAL EXAMINATION: VITAL SIGNS: Upon evaluation in the undersigned physician's office, the patient's blood pressure was 80/52 with a heart rate of 76, respirations were 15, temperature was 97.6 degrees Fahrenheit and weight 196 pounds. GENERAL: This is an overweight, elderly white male, appearing in moderate distress due to lightheadedness and to left lower quadrant pain. HEENT: The pupils are equal, round, reactive to light. Extraocular muscles intact. Sclerae are anicteric. Conjunctivae are pink. Mouth and throat reveal moist mucous membranes. NECK: Supple, without lymphadenopathy, JVD, bruits or thyromegaly. CARDIOVASCULAR: Regular rate and rhythm, without murmurs, rubs, gallops. LUNGS: Clear to auscultation, without wheezes, rhonchi or rales. ABDOMEN: Soft, nondistended. Bowel sounds were present. There was tenderness to palpation in the left lower quadrant with voluntary guarding, no rebound tenderness. No HSM. No CVAT. No masses. LOWER EXTREMITIES: Reveal no appreciable edema, 2+ distal pulses. SKIN: Warm and dry. NEUROLOGIC: The patient was awake and alert, oriented x 3. Speech was intact. The patient was having more difficulty organizing his thoughts. GAIT: The patient's gait was slower than usual as he reported feeling lightheaded and unsteady on his feet. ASSESSMENT AND PLAN: 1. This 87-year-old white male presented with left lower quadrant abdominal pain and some bright red blood per rectum, most likely etiology is diverticulitis. The patient is in moderate pain with the diverticulitis. His blood pressure is low and the patient has symptomatic hypotension. The patient has symptomatic hypotension associated with this. I believe that the patient is at high risk for rapid decline in his physical status due to the current infection. I believe he would benefit from inpatient treatment. We will admit him to a medical surgical bed. We will place him on IV fluids, obtain a stat CT scan of the abdomen and pelvis to evaluate for the extent of the diverticulitis and rule out perforation and abscess formation. We will monitor the patient's renal function, electrolytes and H and H. We will follow H and H in light of the patient's bright red blood per rectum. We will monitor for any increased rectal bleeding. Place the patient on IV antibiotics and some IV fluids to help with volume resuscitation to raise his blood pressure. We will hold off on his usual antihypertensive medication until blood pressure stabilizes. 2. I have spoken to the patient's by telephone. She will come to picking table worker the patient and take him to the hospital, as he is unable to drive due to his current symptoms, and I will make further recommendations pending the patient's response to initial therapeutic interventions and the results of the lab work and CT scan. MD DEO Granger/KAY , 04:46 PM , 05:14 PM
--- NOTE | 2017-11-22 08:47 | HHI.PR ---
Subjective Remarks Patient has less pain in left lower quadrant. No nausea or vomiting. Has been n.p.o. No bowel movement since admission. No further rectal bleeding. Blood pressure has increased. Receiving IV fluids. Has not yet been out of bed. Urine output is good. Current Medications Medications (Trade) Dose Ordered Sig/Terrence Route Start Time Stop Time Status Last Admin Sodium Chloride 1,000 ml @ 125 mls/hr Q8H IV 11/21/17 15:00 11/22/17 01:12 (Toradol Inj) 30 mg Q8H PRN IV PUSH 11/21/17 15:00 11/26/17 14:59 11/21/17 23:02 (Xalatan 0.005% Opth Soln) 1 drop HS RIGHT EYE 11/21/17 21:00 11/21/17 21:01 (Cozaar) 100 mg DAILY PO 11/22/17 09:00 (Pravachol) 40 mg HS PO 11/21/17 21:00 11/21/17 21:01 Metronidazole 100 ml @ 100 mls/hr Q8H IV 11/21/17 17:00 11/22/17 01:12 Levofloxacin/ Dextrose 150 ml @ 100 mls/hr Q24H IV 11/21/17 18:00 11/21/17 17:39 (Cardura) 4 mg HS PO 11/22/17 21:00 Objective Vital Signs Date Time Temp Pulse Resp B/P (MAP) Pulse Ox O2 Delivery O2 Flow Rate FiO2 11/22/17 07:50 97.7 55 20 140/91 (107) 99 11/22/17 04:00 97.1 53 20 146/77 (100) 94 11/22/17 00:00 98.6 63 20 161/88 (112) 97 11/21/17 21:39 59 154/95 (114) 11/21/17 20:00 98.2 59 20 183/91 (121) 96 11/21/17 18:33 57 167/99 (121) 11/21/17 15:50 96.9 66 20 155/94 (114) 98 11/21/17 11:50 97.5 67 20 142/84 (103) 97 I/O 11/21/17 11/21/17 11/21/17 11/22/17 11/22/17 11/22/17 07:00 15:00 23:00 07:00 15:00 23:00 Intake Total 796 ml 1563 ml Output Total 1000 ml 800 ml Balance -204 ml 763 ml Intake Oral 546 ml 0 ml IV Total 250 ml 1563 ml Output Urine Total 1000 ml 800 ml # Bowel Movements 0 General: Overweight elderly white male lying in bed in no acute distress Cardiovascular: Regular rate and rhythm without murmurs Lungs: Clear to auscultation Abdomen: Soft, nondistended with bowel sounds present, tender in the left lower quadrant with voluntary guarding but no rebound tenderness, no masses, no HSM, no CVAT Extremities: No edema. No calf tenderness. Result Diagram: 11/21/17 1345 11/21/17 1650 Assessment and Plan Problem List: (1) Diverticulitis ICD Codes: K57.92 - Diverticulitis of intestine, part unspecified, without perforation or abscess without bleeding Status: Acute Plan: Patient has had a reduction in pain in the left lower quadrant. He remains afebrile. We will continue with IV antibiotics. Advance diet. If he continues to improve, we will plan to transition to oral antibiotics in 1-2 days. Continue to monitor for any recurrent rectal bleeding. (2) Hypertension ICD Codes: I10 - Essential (primary) hypertension Status: Chronic Plan: Blood pressure was low admission. Blood pressure is higher today. We will resume doxazosin. Provide IV enalapril as needed for elevated blood pressure. Reduce IV fluids. (3) Hyperlipidemia ICD Codes: E78.5 - Hyperlipidemia, unspecified Status: Chronic Plan: Continue with statin therapy. Problem Qualifiers (1) Hypertension: Qualified Codes: I10 - Essential (primary) hypertension (2) Hyperlipidemia: Qualified Codes: E78.2 - Mixed hyperlipidemia Rayray Mckay MD Nov 22, 2017 08:47
[2017-11-22] MEDS: LOSARTAN 50 MG TAB PO SCH (09:56)
[2017-11-22] MEDS: DEXT 5%-NACL 0.45% 1000 ML INJ 1,000 ML IV SCH ×3 (09:57→23:58)
[2017-11-22 11:50] VITALS: BP 135/82; PULSE 53; RESP 20; TEMP 96.2; O2SAT 97
[2017-11-22 15:50] VITALS: BP 166/91; PULSE 57; RESP 20; TEMP 97.1; O2SAT 95
[2017-11-22] MEDS: ENALAPRILAT 1.25 MG/ML VIAL IV PUSH PRN (17:28)
[2017-11-22] MEDS: KETOROLAC TROMETHAMINE 30 MG/ML (IVP) VIAL IV PUSH PRN (18:32)
[2017-11-22 20:00] VITALS: BP 139/82; PULSE 55; RESP 20; TEMP 97.3; O2SAT 99
[2017-11-22] MEDS: PRAVASTATIN SOD 40 MG TAB PO SCH (21:22)
[2017-11-22] MEDS: DOXAZOSIN MESYLATE 4 MG TAB PO SCH (21:22)
[2017-11-22] MEDS: LATANOPROST 0.005% OPHT SOLN 2.5 ML BTL RIGHT EYE SCH (21:22)
[2017-11-23] VITALS (7 sets, daily range): BP systolic 138–166; BP diastolic 88–100; PULSE 53–102; RESP 11–20; TEMP 96–96.9; O2SAT 94–99
[2017-11-23] MEDS ORDERED: ESCI10TA PO (05:32)
[2017-11-23 07:03] LABS: AUTOMATED NEUTROPHIL # 5.7 TH/MM3 (1.8-7.7); BASOPHIL # 0.1 TH/MM3 (0-0.2); BASOPHIL % 0.8 % (0.0-2.0); EOSINOPHIL # 0.4 TH/MM3 (0-0.4); EOSINOPHIL % 4.3 % (0.0-4.0); HEMATOCRIT 37.6 % (39.0-51.0); HEMOGLOBIN 12.4 GM/DL (13.0-17.0); LYMPH % 16.6 % (9.0-44.0); LYMPHOCYTE # 1.4 TH/MM3 (1.0-4.8); MEAN CORPUSCULAR HEMOGLOBIN 31.6 PG (27.0-34.0); MEAN CORPUSCULAR HGB CONC 32.9 % (32.0-36.0); MEAN PLATELET VOLUME 7.7 FL (7.0-11.0); MONO % 7.6 % (0.0-8.0); MONOCYTE # 0.6 TH/MM3 (0-0.9); NEUT % 70.7 % (16.0-70.0); PLATELET COUNT 221 TH/MM3 (150-450); RED BLOOD COUNT 3.91 MIL/MM3 (4.50-5.90); RED CELL DISTRIBUTION WIDTH 13.1 % (11.6-17.2); WHITE BLOOD COUNT 8.2 TH/MM3 (4.0-11.0)
[2017-11-23 07:33] LABS: CALCIUM 8.4 MG/DL (8.5-10.1)
[2017-11-23 07:34] LABS: BICARBONATE 28.1 MEQ/L (21.0-32.0)
[2017-11-23 07:37] LABS: CREATININE 1.4 MG/DL (0.60-1.30)
[2017-11-23] MEDS: LOSARTAN 50 MG TAB PO SCH (07:55)
[2017-11-23] MEDS: metroNIDAZOLE 500 MG INJ 100 ML IV SCH (09:55)
--- NOTE | 2017-11-23 15:07 | HHI.PR ---
Subjective Remarks Left lower quadrant abdominal pain has significantly improved. Patient tolerating oral intake well. Bowels are moving. Urine output good. Ambulating in halls without assistance. He is afebrile. Current Medications Medications (Trade) Dose Ordered Sig/Terrence Route Start Time Stop Time Status Last Admin (Toradol Inj) 30 mg Q8H PRN IV PUSH 11/21/17 15:00 11/26/17 14:59 11/22/17 18:32 (Xalatan 0.005% Opth Soln) 1 drop HS RIGHT EYE 11/21/17 21:00 11/22/17 21:22 (Cozaar) 100 mg DAILY PO 11/22/17 09:00 11/23/17 07:55 (Pravachol) 40 mg HS PO 11/21/17 21:00 11/22/17 21:22 Metronidazole 100 ml @ 100 mls/hr Q8H IV 11/21/17 17:00 11/23/17 09:55 (Cardura) 4 mg HS PO 11/22/17 21:00 11/22/17 21:22 (Vasotec Inj) 1.25 mg Q8H PRN IV PUSH 11/22/17 09:00 11/22/17 17:28 Dextrose/Sodium Chloride 1,000 ml @ 84 mls/hr [id number] IV 11/22/17 09:00 11/22/17 23:58 Levofloxacin/ Dextrose 150 ml @ 100 mls/hr Q48H IV 11/23/17 18:00 Objective Vital Signs Date Time Temp Pulse Resp B/P (MAP) Pulse Ox O2 Delivery O2 Flow Rate FiO2 11/23/17 13:00 96.9 57 18 144/91 (108) 99 11/23/17 08:50 138/92 (107) 11/23/17 08:10 17 11/23/17 08:00 96.6 56 11 165/100 (121) 94 11/23/17 00:00 96.0 59 20 166/88 (114) 97 11/22/17 20:00 97.3 55 20 139/82 (101) 99 11/22/17 15:50 97.1 57 20 166/91 (116) 95 I/O 11/22/17 11/22/17 11/22/17 11/23/17 11/23/17 11/23/17 07:00 15:00 23:00 07:00 15:00 23:00 Intake Total 1563 ml 100 ml 480 ml Output Total 800 ml 300 ml Balance 763 ml 100 ml 180 ml Intake Oral 0 ml 480 ml IV Total 1563 ml 100 ml Output Urine Total 800 ml 300 ml # Voids 1 # Bowel Movements 1 Cardiovascular: Regular rate and rhythm Lungs: Clear to auscultation Abdomen: Soft, mildly tender in the left lower quadrant without guarding or rebound, soft, obese with bowel sounds present, no masses Extremities: No edema or calf tenderness Result Diagram: 11/23/1759911/23/17599 Assessment and Plan Problem List: (1) Diverticulitis ICD Codes: K57.92 - Diverticulitis of intestine, part unspecified, without perforation or abscess without bleeding Status: Acute Plan: Clinically improved. Change patient to oral antibiotics. If he tolerates the oral antibiotics and still has decreased pain by the morning, will discharge home with close outpatient follow-up. (2) Hypertension ICD Codes: I10 - Essential (primary) hypertension Status: Chronic Plan: Blood pressure under adequate control. Will continue with usual antihypertensive medications and follow blood pressure. (3) Hyperlipidemia ICD Codes: E78.5 - Hyperlipidemia, unspecified Status: Chronic Plan: Continue with statin therapy. Problem Qualifiers (1) Hypertension: Qualified Codes: I10 - Essential (primary) hypertension (2) Hyperlipidemia: Qualified Codes: E78.2 - Mixed hyperlipidemia Rayray Mckay MD Nov 23, 2017 15:07
[2017-11-23] MEDS: ENALAPRILAT 1.25 MG/ML VIAL IV PUSH PRN (17:09)
[2017-11-23] MEDS: metroNIDAZOLE 500 MG TAB PO SCH ×2 (17:09→21:26)
[2017-11-23] MEDS ORDERED: LEVOFLOXACIN 750 MG PREMIX INJ 150 ML IV SCH (18:00)
[2017-11-23] MEDS ORDERED: ESCITALOPRAM OXALATE 10 MG TAB PO SCH (21:00)
[2017-11-23] MEDS: DOXAZOSIN MESYLATE 4 MG TAB PO SCH (21:26)
[2017-11-23] MEDS: LATANOPROST 0.005% OPHT SOLN 2.5 ML BTL RIGHT EYE SCH (21:26)
[2017-11-23] MEDS: PRAVASTATIN SOD 40 MG TAB PO SCH (21:26)
[2017-11-24] VITALS: BP 179/92; PULSE 58; RESP 20; TEMP 97.2; O2SAT 96
[2017-11-24] MEDS: ENALAPRILAT 1.25 MG/ML VIAL IV PUSH PRN (02:00)
[2017-11-24 07:05] LABS: CHLORIDE 108 MEQ/L (98-107); SODIUM (NA) 142 MEQ/L (136-145)
[2017-11-24 07:10] LABS: ALBUMIN 2.9 GM/DL (3.4-5.0); BICARBONATE 27.8 MEQ/L (21.0-32.0); CALCIUM 8.6 MG/DL (8.5-10.1); GLUCOSE,RANDOM 94 MG/DL (74-106)
[2017-11-24 07:11] LABS: BLOOD UREA NITROGEN 19 MG/DL (7-18)
[2017-11-24 07:13] LABS: ALT (GPT) 17 U/L (12-78)
[2017-11-24 07:14] LABS: AST (GOT) 16 U/L (15-37); GLOMERULAR FILTRATION RATE 48 ML/MIN (>89)
[2017-11-24 07:15] LABS: TOTAL BILIRUBIN ADULT 0.7 MG/DL (0.2-1.0)
[2017-11-24 07:16] LABS: ALKALINE PHOSPHATASE 74 U/L (45-117)
[2017-11-24 08:00] VITALS: BP 171/82; PULSE 60; RESP 16; TEMP 98.5; O2SAT 96
[2017-11-24] MEDS ORDERED: LEVOFLOXACIN 750 MG TAB PO SCH (09:00)
[2017-11-24 09:56] VITALS: BP 149/80; PULSE 55
[2017-11-24] MEDS: LOSARTAN 50 MG TAB PO SCH (09:59)
[2017-11-24] MEDS: metroNIDAZOLE 500 MG TAB PO SCH (09:59)
--- NOTE | 2017-11-24 10:00 | HHI.PR ---
Subjective Remarks Patient feeling well. Taking p.o. well. Bowels are moving. Has been ambulating independently. Urine output is good. Reports minimal discomfort in the left lower quadrant. He has tolerated oral medications well without any nausea. Patient's blood pressure was high overnight but better this morning. He admits that he was anxious because his has been ill overnight and he was worried about her. He denies any chest pain, shortness of breath, palpitations or headaches. Current Medications Medications (Trade) Dose Ordered Sig/Terrence Route Start Time Stop Time Status Last Admin (Toradol Inj) 30 mg Q8H PRN IV PUSH 11/21/17 15:00 11/26/17 14:59 11/22/17 18:32 (Xalatan 0.005% Opth Soln) 1 drop HS RIGHT EYE 11/21/17 21:00 11/23/17 21:26 (Cozaar) 100 mg DAILY PO 11/22/17 09:00 11/23/17 07:55 (Pravachol) 40 mg HS PO 11/21/17 21:00 11/23/17 21:26 (Cardura) 4 mg HS PO 11/22/17 21:00 11/23/17 21:26 (Vasotec Inj) 1.25 mg Q8H PRN IV PUSH 11/22/17 09:00 11/24/17 02:00 (Levaquin) 750 mg DAILY PO 11/24/17 09:00 (Flagyl) 500 mg Q8H PO 11/23/17 17:00 11/23/17 21:26 (Lexapro) 10 mg HS PO 11/23/17 21:00 11/23/17 21:26 Objective Vital Signs Date Time Temp Pulse Resp B/P (MAP) Pulse Ox O2 Delivery O2 Flow Rate FiO2 11/24/17 09:56 55 149/80 (103) 11/24/17 00:00 97.2 58 20 179/92 (121) 96 11/23/17 20:00 96.9 102 20 160/90 (113) 96 11/23/17 16:00 96.8 53 18 166/99 (121) 98 11/23/17 13:00 96.9 57 18 144/91 (108) 99 I/O 11/23/17 11/23/17 11/23/17 11/24/177/18 4/7/18 07:00 15:00 23:00 07:00 15:00 23:00 Intake Total 100 ml 240 ml Balance 100 ml 240 ml Intake Oral 240 ml IV Total 100 ml # Voids 1 3 Cardiovascular: Regular rate and rhythm Lungs: Clear to auscultation Abdomen: Obese, soft, nondistended with minimal left lower quadrant tenderness without guarding or rebound, bowel sounds present Result Diagram: 11/23/17 0600 11/24/17 0615 Assessment and Plan Problem List: (1) Diverticulitis ICD Codes: K57.92 - Diverticulitis of intestine, part unspecified, without perforation or abscess without bleeding Status: Acute Plan: Patient tolerating oral antibiotics. Can discharge home to complete clinically improved. Course of antibiotics on as an outpatient. (2) Hypertension ICD Codes: I10 - Essential (primary) hypertension Status: Chronic Plan: Blood pressure was higher overnight but better this morning. Patient will continue with usual antihypertensive medication. He has a blood pressure cuff at home and can continue to monitor his blood pressure. Will check blood pressure at follow-up appointment. (3) Hyperlipidemia ICD Codes: E78.5 - Hyperlipidemia, unspecified Status: Chronic Plan: Continue with statin therapy. Discharge Planning Discharge home today Problem Qualifiers (1) Hypertension: Qualified Codes: I10 - Essential (primary) hypertension (2) Hyperlipidemia: Qualified Codes: E78.2 - Mixed hyperlipidemia Rayray Mckay MD Nov 24, 2017 10:00
[2017-11-24] MEDS ORDERED: METR-1 PO (10:06)
[2017-11-24] MEDS ORDERED: ASPI81TA23 PO (10:06)
[2017-11-24] MEDS ORDERED: LEVA750T9 PO (10:06)
--- NOTE | 2017-11-24 11:09 | HHI.DS ---
Discharge Summary Admission Date Nov 21, 2017 at 13:02 Discharge Date: Nov 24, 2017 Admitting Diagnosis Acute diverticulitis (1) Diverticulitis Diagnosis: Principal ICD Codes: K57.92 - Diverticulitis of intestine, part unspecified, without perforation or abscess without bleeding Status: Acute (2) Hypertension Diagnosis: Secondary ICD Codes: I10 - Essential (primary) hypertension Status: Chronic (3) Hyperlipidemia Diagnosis: Secondary ICD Codes: E78.5 - Hyperlipidemia, unspecified Status: Chronic Brief History This 87-year-old white male presented to the undersigned physician's office on the day of admission complaining of 3-4 days of left lower quadrant abdominal pain which became progressively worse. He was experiencing some constipation. On the morning of admission, he had significant constipation and when he passed stool, it had some bright red blood. He was feeling weak and lightheaded. His systolic blood pressure in the undersigned physician's office was 86. The patient was extremely weak. It was felt that he was at risk of rapid deterioration of his physical status due to the acute infection and hypotension. Physical examination revealed left lower quadrant tenderness with voluntary guarding. The patient was to be admitted to this facility for further evaluation and treatment of presumptive acute diverticulitis. CBC/BMP: 11/23/17 0600 11/24/17 0615 Significant Findings Laboratory Tests Test 11/21/17 13:45 11/21/17 15:00 11/21/17 16:50 11/23/17 06:00 Red Blood Count 3.95 MIL/MM3 (4.50-5.90) 3.91 MIL/MM3 (4.50-5.90) Hemoglobin 12.7 GM/DL (13.0-17.0) 12.4 GM/DL (13.0-17.0) Hematocrit 37.4 % (39.0-51.0) 37.6 % (39.0-51.0) Blood Urea Nitrogen 21 MG/DL (7-18) 23 MG/DL (7-18) Creatinine 1.40 MG/DL (0.60-1.30) 1.40 MG/DL (0.60-1.30) Albumin 2.5 GM/DL (3.4-5.0) Calcium Level 8.1 MG/DL (8.5-10.1) 8.4 MG/DL (8.5-10.1) Aspartate Amino Transf (AST/SGOT) 54 U/L (15-37) Estimat Glomerular Filtration Rate 48 ML/MIN (>89) 48 ML/MIN (>89) Neutrophils (%) (Auto) 70.7 % (16.0-70.0) Eosinophils (%) (Auto) 4.3 % (0.0-4.0) Chloride Level 110 MEQ/L (98-107) Test 11/24/17 06:15 Blood Urea Nitrogen 19 MG/DL (7-18) Creatinine 1.40 MG/DL (0.60-1.30) Albumin 2.9 GM/DL (3.4-5.0) Chloride Level 108 MEQ/L (98-107) Estimat Glomerular Filtration Rate 48 ML/MIN (>89) Hospital Course The patient was admitted to medical surgical bed. CT scan of the abdomen and pelvis revealed findings consistent with sigmoid diverticulitis. The patient was placed on IV antibiotics and IV fluids. His blood pressure returned to normal. Over the hospital course, the patient's pain continued to decrease. His diet was advanced and he was tolerating a regular diet. He was transitioned to oral antibiotics. The patient's blood pressure was elevated intermittently during the hospitalization but on the day of discharge it had improved. He would continue with his current antihypertensive medication On the day of discharge, the patient was eating well, urine output was good, bowels were moving. There was no further rectal bleeding. He was afebrile. He was ambulating in the room independently. It was felt that he had obtained maximum benefit from the hospitalization. The patient was discharged home in good condition. He will complete his course of oral antibiotics as an outpatient. The patient was instructed to follow-up in the undersigned physician's office in a week. He should call the undersigned physician for any recurrent abdominal pain, nausea, vomiting, rectal bleeding or fevers. His discharge medications were listed on the medication reconciliation sheet. Pt Condition on Discharge: Good Discharge Disposition: Discharge Home Discharge Instructions DIET: Follow Instructions for: Heart Healthy Diet Activities you can perform: Regular-No Restrictions Rayray Mckay MD Nov 24, 2017 11:09
== END 2017-11-24 13:34 | disposition home or self-care (01) | DRG 379 ==
LOC: PH3B 13:02
PROVIDERS: ADMIT Family Medicine; ATTEND Family Medicine
DX: K57.33 Diverticulitis of large intestine without perforation or abscess with bleeding (principal); I95.9 Hypotension, unspecified; I10 Essential (primary) hypertension; H40.9 Unspecified glaucoma; H35.30 Unspecified macular degeneration; M15.9 Polyosteoarthritis, unspecified; E78.2 Mixed hyperlipidemia; Z85.46 Personal history of malignant neoplasm of prostate; Z85.828 Personal history of other malignant neoplasm of skin; Z86.010 Personal history of colon polyps; Z88.5 Allergy status to narcotic agent; Z92.3 Personal history of irradiation; Z96.651 Presence of right artificial knee joint; Z98.1 Arthrodesis status
CPT/HCPCS: 74177; 80048; 80053; 81001; 85025; 85027; 87040; J1885; J1956; J7030; Q9963; Q9967